=== PATIENT | female | born 1950 | race Caucasian/White ===

== ENCOUNTER → 2017-04-25 | Outpatient (CLI) | payer MEDICARE, BC ==
--- NOTE | 2017-04-28 07:31 | MM ---
Reason for exam: additional evaluation requested from prior study. Last mammogram was performed 2 years and 10 months ago. History: Patient is postmenopausal. Family history of breast cancer in cousin at age 66. Physical Findings: Nurse did not find any significant physical abnormalities on exam. MG 3D Diag Mammo W/Cad MAU Bilateral CC and MLO view(s) were taken. Prior study comparison: June 30, 2014, bilateral MG diagnostic mammo w CAD MAU. September 24, 2012, bilateral digital screening mammo w/CAD. There are scattered fibroglandular densities. Finding: There are typically benign round calcifications in the left breast. There is no discrete abnormality. These results were verbally communicated with the patient and result sheet given to the patient on 04/25/17. ASSESSMENT: Benign, BI-RAD 2 RECOMMENDATION: Routine screening mammogram of both breasts in 1 year. Manage on a clinical basis with regard to bilateral pain.
== END | disposition home or self-care (01) ==
LOC: RADMAMWWP 13:27
PROVIDERS: ATTEND Family Medicine
DX: R92.8 Other abnormal and inconclusive findings on diagnostic imaging of breast (principal)
CPT/HCPCS: G0204; G0279

== ENCOUNTER 2017-07-19 20:49 | Inpatient (IN) | payer MEDICARE, BC ==
[2017-07-19] MEDS ORDERED: NITROGLYCERIN OINT 1 INCH/GM PACKET TOPICAL STA (21:07)
[2017-07-19] MEDS ORDERED: HEPARIN SODIUM,PORCINE 5,000 UNIT/ML 1 ML VIAL IV ONE (21:07)
--- NOTE | 2017-07-19 21:12 | ED ---
General Adult HPI - General Chief complaint: Chest Pain Stated complaint: Chest Pain Time Seen by Provider: 07/19/17 21:00 Source: patient, EMS, RN notes reviewed Mode of arrival: EMS Limitations: no limitations - History of Present Illness Initial comments: This is a 67-year-old female presents emergency Department with a past medical history significant for back surgery and pain management. Patient also states she's had a cardiac history as well. Patient states this morning while getting dressed at 11:00 she started having chest pain is been constant ever since. Patient states his been no relief with nitro or fentanyl. Patient states she went to [facility] they did an initial set of enzymes and a CT to rule out PE and she was transferred our facility. Patient states the chest pain continues and it radiates straight to her back per patient states she is mildly short of breath or chest pain. Patient states when it first came on she was diaphoretic but she is no longer diaphoretic. Patient denies any nausea vomiting per patient denies abdominal pain. Patient denies any palpitations with this pain. Patient denies any lightheadedness dizziness or near syncopal episode. - Related Data Home Medications Medication Instructions Recorded Confirmed ALPRAZolam [Xanax] 1 mg PO BID 05/06/14 05/06/14 Acyclovir 400 mg PO BID 05/06/14 05/06/14 Albuterol Sulfate [Proventil Hfa] 1 - 2 puff INHALATION Q6H PRN 05/06/14 Aspirin 81 mg PO DAILY 05/06/14 05/06/14 Clopidogrel [Plavix] 75 mg PO DAILY 05/06/14 05/06/14 Esomeprazole Magnesium [NexIUM] 40 mg PO DAILY 05/06/14 05/06/14 FLUoxetine HCL [PROzac] 80 mg PO DAILY 05/06/14 05/06/14 Furosemide [Lasix] 40 mg PO DAILY 05/06/14 05/06/14 HYDROcodone/APAP 10-325MG [[place] 1 each PO Q4HR PRN 05/06/14 05/06/14 10] Levothyroxine Sodium [Synthroid] 50 mcg PO DAILY 05/06/14 05/06/14 Lidocaine 5% Patch [Lidoderm 5% 1 patch TOPICAL Q12H 05/06/14 05/06/14 Patch] Lisinopril [Zestril] 10 mg PO DAILY 05/06/14 05/06/14 Methocarbamol [Robaxin] 1,500 mg PO TID 05/06/14 05/06/14 Methylphenidate HCl [Ritalin] 10 mg PO DAILY 05/06/14 05/06/14 Potassium Chloride [Klor-Con 10] 20 meq PO DAILY 05/06/14 05/06/14 Simvastatin [Zocor] 40 mg PO HS 05/06/14 05/06/14 lamoTRIgine [LaMICtal] 50 mg PO BID 05/06/14 05/06/14 traZODone HCL [Desyrel] 50 mg PO HS 05/06/14 05/06/14 Previous Rx's Medication Instructions Recorded Azithromycin [Zithromax Z-pack] 250 mg PO DIRECTED #6 tab 05/06/14 Allergies Allergy/AdvReac Type Severity Reaction Status Date / Time betamethasone Allergy Unknown Verified 05/06/14 01:00 [From Celestone] betamethasone sodium Allergy Unknown Verified 05/06/14 01:00 phosphate [From Celestone] Iodinated Contrast- Oral and Allergy Unknown Verified 05/06/14 01:00 IV Dye [Iodinated Contrast Media - IV Dye] NSAIDS (Non-Steroidal Allergy Unknown Verified 07/19/17 21:00 Anti-Inflamma prednisone Allergy Unknown Verified 05/06/14 01:00 rofecoxib [From Vioxx] Allergy Unknown Verified 05/06/14 01:00 sulfamethoxazole Allergy Unknown Verified 05/06/14 01:00 [From Septra] trimethoprim [From Septra] Allergy Unknown Verified 05/06/14 01:00 Review of Systems ROS Statement: Those systems with pertinent positive or pertinent negative responses have been documented in the HPI. ROS Other: All systems not noted in ROS Statement are negative. Past Medical History Past Medical History: Chest Pain / Angina, Heart Failure, COPD, Deep Vein Thrombosis (DVT), GERD/Reflux, Hyperlipidemia, Hypertension, Myocardial Infarction ([place]) History of Any Multi-Drug Resistant Organisms: None Reported Past Surgical History: Appendectomy, Heart Catheterization With Stent, Hysterectomy, Tonsillectomy Additional Past Surgical History / Comment(s): bilateral ovaries, d&c, right kidney, Past Psychological History: Anxiety, Depression Smoking Status: Current every day smoker Past Alcohol Use History: None Reported Past Drug Use History: None Reported General Exam - General Exam Comments Initial Comments: GENERAL: Patient is well-developed and well-nourished. Patient is nontoxic and well- hydrated and is in mild distress. ENT: Neck is soft and supple. No significant lymphadenopathy is noted. Oropharynx is clear. Moist mucous membranes. Neck has full range of motion without eliciting any pain. EYES: The sclera were anicteric and conjunctiva were pink and moist. Extraocular movements were intact and pupils were equal round and reactive to light. Eyelids were unremarkable. PULMONARY: Unlabored respirations. Good breath sounds bilaterally. No audible rales rhonchi or wheezing was noted. CARDIOVASCULAR: There is a regular rate and rhythm without any murmurs gallops or rubs. ABDOMEN: Soft and nontender with normal bowel sounds. No palpable organomegaly was noted. There is no palpable pulsatile mass. SKIN: Skin is clear with no lesions or rashes and otherwise unremarkable. NEUROLOGIC: Patient is alert and oriented x3. Cranial nerves II through XII are grossly intact. Motor and sensory are also intact. Normal speech, volume and content. Symmetrical smile. MUSCULOSKELETAL: Normal extremities with adequate strength and full range of motion. No lower extremity swelling or edema. No calf tenderness. LYMPHATICS: No significant lymphadenopathy is noted PSYCHIATRIC: Normal psychiatric evaluation. Normal interpersonal interactions appears functionally intact in deals appropriately with others. No signs of depression. No signs of anxiety. Limitations: no limitations Course Vital Signs 07/19/17 07/19/17 07/19/17 21:00 21:41 22:38 Temperature 98.8 F 97.2 F L Pulse Rate 50 L 45 L 47 L Respiratory 16 16 20 Rate Blood Pressure 179/91 170/82 168/82 O2 Sat by Pulse 96 98 95 Oximetry Medical Decision Making - Medical Decision Making EKG shows sinus tachycardia 46 bpm AK interval is 144 QRS is 86 QT interval 550 QTC is 481. Patient's EKG shows no ST segment elevation or depression or T wave normalities are noted. Patient's second enzymes, at [facility] were negative I was Dr. Parmar's nurse practitioner and she agreed to keep the patient admitted the patient I consult cardiology I placed the patient on heparin I repeated enzymes on the floor I continue the heparin and aspirin and Nitropaste upstairs. - Lab Data Result diagrams: 07/19/17 21:06 07/19/17 21:06 Lab Results 07/19/17 07/19/17 07/19/17 Range/Units 21:06 21:06 21:06 WBC 6.2 (3.8-10.6) k/uL RBC 4.04 (3.80-5.40) m/uL Hgb 12.0 (11.4-16.0) gm/dL Hct 37.4 (34.0-46.0) % MCV 92.4 (80.0-100.0) fL MCH 29.6 (25.0-35.0) pg MCHC 32.1 (31.0-37.0) g/dL RDW 12.8 (11.5-15.5) % Plt Count 234 (150-450) k/uL Neutrophils % 86 % Lymphocytes % 11 % Monocytes % 2 % Eosinophils % 0 % Basophils % 1 % Neutrophils # 5.4 (1.3-7.7) k/uL Lymphocytes # 0.7 L (1.0-4.8) k/uL Monocytes # 0.1 (0-1.0) k/uL Eosinophils # 0.0 (0-0.7) k/uL Basophils # 0.0 (0-0.2) k/uL PT (9.0-12.0) sec INR (<1.2) APTT (22.0-30.0) sec Sodium 140 (137-145) mmol/L Potassium 3.8 (3.5-5.1) mmol/L Chloride 108 H (98-107) mmol/L Carbon Dioxide 23 (22-30) mmol/L Anion Gap 9 mmol/L BUN 4 L (7-17) mg/dL Creatinine 0.59 (0.52-1.04) mg/dL Est GFR (MDRD) Af Amer >60 (>60 ml/min/1.73 sqM) Est GFR (MDRD) Non-Af >60 (>60 ml/min/1.73 sqM) Glucose 114 H (74-99) mg/dL Calcium 9.5 (8.4-10.2) mg/dL Magnesium 1.8 (1.6-2.3) mg/dL Total Bilirubin 0.5 (0.2-1.3) mg/dL AST 38 H (14-36) U/L ALT 35 (9-52) U/L Alkaline Phosphatase 65 (38-126) U/L Total Creatine Kinase 80 (30-135) U/L CK-MB (CK-2) 1.0 (0.0-2.4) ng/mL CK-MB (CK-2) Rel Index 1.3 Troponin I <0.012 (0.000-0.034) ng/mL Total Protein 6.8 (6.3-8.2) g/dL Albumin 4.1 (3.5-5.0) g/dL 07/19/17 Range/Units 21:06 WBC (3.8-10.6) k/uL RBC (3.80-5.40) m/uL Hgb (11.4-16.0) gm/dL Hct (34.0-46.0) % MCV (80.0-100.0) fL MCH (25.0-35.0) pg MCHC (31.0-37.0) g/dL RDW (11.5-15.5) % Plt Count (150-450) k/uL Neutrophils % % Lymphocytes % % Monocytes % % Eosinophils % % Basophils % % Neutrophils # (1.3-7.7) k/uL Lymphocytes # (1.0-4.8) k/uL Monocytes # (0-1.0) k/uL Eosinophils # (0-0.7) k/uL Basophils # (0-0.2) k/uL PT 11.3 (9.0-12.0) sec INR 1.1 (<1.2) APTT 26.4 (22.0-30.0) sec Sodium (137-145) mmol/L Potassium (3.5-5.1) mmol/L Chloride (98-107) mmol/L Carbon Dioxide (22-30) mmol/L Anion Gap mmol/L BUN (7-17) mg/dL Creatinine (0.52-1.04) mg/dL Est GFR (MDRD) Af Amer (>60 ml/min/1.73 sqM) Est GFR (MDRD) Non-Af (>60 ml/min/1.73 sqM) Glucose (74-99) mg/dL Calcium (8.4-10.2) mg/dL Magnesium (1.6-2.3) mg/dL Total Bilirubin (0.2-1.3) mg/dL AST (14-36) U/L ALT (9-52) U/L Alkaline Phosphatase (38-126) U/L Total Creatine Kinase (30-135) U/L CK-MB (CK-2) (0.0-2.4) ng/mL CK-MB (CK-2) Rel Index Troponin I (0.000-0.034) ng/mL Total Protein (6.3-8.2) g/dL Albumin (3.5-5.0) g/dL Critical Care Time Critical Care Time: Yes Total Critical Care Time: 35 Disposition Clinical Impression: Unstable angina pectoris Disposition: ADMITTED IP TO THIS [facility] Time of Disposition: 21:55
[2017-07-19 21:19] LABS: Basophils % (A) 1 %; CH 29.8; CHCM 32.5; Eosinophils % (A) 0 %; HCT 37.4 % (34.0-46.0); HDW 2.53; Luc # (Auto) 0.02; Luc % (Auto) 0; Lymphocytes # (A) 0.7 k/uL (1.0-4.8); Lymphocytes % (A) 11 %; MCH 29.6 pg (25.0-35.0); MCHC 32.1 g/dL (31.0-37.0); MCV 92.4 fL (80.0-100.0); Mean Platelet Volume 6.6; Monocytes # (A) 0.1 k/uL (0-1.0); Monocytes % (A) 2 %; Neutrophils # (A) 5.4 k/uL (1.3-7.7); Neutrophils % (A) 86 %; RBC 4.04 m/uL (3.80-5.40); RDW 12.8 % (11.5-15.5); WBC 6.2 k/uL (3.8-10.6); WBC (Perox) 6.05
[2017-07-19 21:31] LABS: INR 1.1 (<1.2); Partial Thromboplastin Time 26.4 sec (22.0-30.0); Prothrombin Time 11.3 sec (9.0-12.0)
[2017-07-19 21:32] LABS: ALT 35 U/L (9-52); AST 38 U/L (14-36); Alkaline Phosphatase 65 U/L (38-126); Anion Gap 9 mmol/L; Blood Urea Nitrogen 4 mg/dL (7-17); Calcium 9.5 mg/dL (8.4-10.2); Carbon Dioxide 23 mmol/L (22-30); Chloride 108 mmol/L (98-107); Creatine Kinase 80 U/L (30-135); Glucose 114 mg/dL (74-99); Magnesium 1.8 mg/dL (1.6-2.3); Non-African American GFR(MDRD) >60 (>60 ml/min/1.73 sqM); Potassium 3.8 mmol/L (3.5-5.1); Sodium 140 mmol/L (137-145); Total Bilirubin 0.5 mg/dL (0.2-1.3); Total Protein 6.8 g/dL (6.3-8.2)
[2017-07-19] MEDS: HEPARIN SODIUM,PORCINE/D5W PMX 25,000 UNIT in DEXTROSE/WATER 1 500ML.BAG IV SCH (21:37)
[2017-07-19 21:43] LABS: Troponin I <0.012 ng/mL (0.000-0.034)
[2017-07-19] MEDS ORDERED: NITROGLYCERIN SL TABS 0.4 MG TAB SUBLINGUAL PRN (21:55)
[2017-07-19] MEDS ORDERED: LEVOFLOXACIN 750MG-D5W PMX 750 MG in DEXTROSE/WATER 1 150ML.BAG IVPB STA (22:31)
[2017-07-19] MEDS ORDERED: MORPHINE SULFATE 10 MG/ML SYRINGE IVP STA (22:33)
[2017-07-19] MEDS ORDERED: LEVOFLOXACIN 750MG-D5W PMX 750 MG in DEXTROSE/WATER 1 150ML.BAG IVPB SCH (22:45)
[2017-07-19] MEDS ORDERED: ALPRAZolam 0.5 MG TAB PO PRN (23:59)
[2017-07-20] MEDS: NITROGLYCERIN OINT 1 INCH/GM PACKET TOPICAL SCH ×5 (00:15→23:02)
[2017-07-20] MEDS: MAG HYDROX/AL HYDROX/SIMETH 30 ML CUP PO SCH ×5 (00:15→20:54)
[2017-07-20] MEDS: MORPHINE SULFATE 10 MG/ML SYRINGE IVP PRN ×3 (01:24→09:08)
[2017-07-20 05:03] LABS: Cholesterol 221 mg/dL (<200); HDL Cholesterol 94 mg/dL (40-60)
[2017-07-20 05:20] LABS: Creatine Kinase 83 U/L (30-135)
[2017-07-20 05:32] LABS: Creatine Kinase MB 1.2 ng/mL (0.0-2.4); Troponin I <0.012 ng/mL (0.000-0.034)
[2017-07-20] MEDS ORDERED: ONDANSETRON 4 MG/2 ML VIAL IVP PRN (08:29)
--- NOTE | 2017-07-20 08:34 | P.CRDCN ---
History of Present Illness Consult date: 07/20/17 Chief complaint: Chest pain History of present illness: This is a pleasant 67-year-old female patient with a past medical history significant for coronary artery disease with prior stenting was performed about 2 years ago with unknown details the patient does see a life skills worker at [facility] and the stenting was performed at [facility] in the setting of acute myocardial infarction preceded by syncopal episode. Beside that the patient does have hypertension, dyslipidemia, and she is a smoker. She was in her usual state of health yesterday when she was dressing and she started experiencing chest discomfort, she points toward the epigastric area as well as toward the left and right upper quadrant of the abdomen. She stated that the discomfort is radiating to her mid chest. Beside that she was experiencing intermittent episodes of sweating associated with nausea. On physical examination she does have extreme abdominal tenderness even when I touched the abdomen. She stated that she has a hernia. The tenderness on examination is quite intense. Beside that she is bradycardic with heart rate in the 40s and 50s. The cardiac enzymes were checked and came in to be unremarkable. The EKG showed sinus bradycardia with nonspecific changes. I am concerned about intra-abdominal process at this point in view of the epigastric discomfort. I will obtain an ultrasound of the abdomen at this point. If a GI etiology for the epigastric discomfort ruled out I will rule out severe underlying coronary artery disease after that. Meanwhile I will obtain an echocardiogram was Doppler. Also I will obtain a TSH. Past Medical History Past Medical History: Chest Pain / Angina, Heart Failure, COPD, Deep Vein Thrombosis (DVT), GERD/Reflux, Hyperlipidemia, Hypertension, Myocardial Infarction ([place]) Additional Past Medical History / Comment(s): "kidney stones and hydronephrosis , UTI's (see's specialist)" Last Myocardial Infarction Date:: 2004 History of Any Multi-Drug Resistant Organisms: None Reported Past Surgical History: Appendectomy, Heart Catheterization With Stent, Hysterectomy, Tonsillectomy Additional Past Surgical History / Comment(s): bilateral ovaries, d&c, right kidney, Past Anesthesia/Blood Transfusion Reactions: No Reported Reaction Date of Last Stent Placement:: 2005 Past Psychological History: Anxiety, Depression Smoking Status: Current every day smoker Past Alcohol Use History: None Reported Past Drug Use History: None Reported - Past Family History Mother Family Medical History: Congestive Heart Failure (CHF), CVA/TIA Father Family Medical History: Cancer Additional Family Medical History / Comment(s): " of lung cancer" Medications and Allergies Home Medications Medication Instructions Recorded Confirmed Type ALPRAZolam [Xanax] 1 mg PO BID 05/06/14 07/20/17 History Acyclovir 400 mg PO BID 05/06/14 07/20/17 History Albuterol Sulfate [Proventil Hfa] 1 - 2 puff INHALATION Q6H PRN 05/06/14 History Esomeprazole Magnesium [NexIUM] 40 mg PO DAILY 05/06/14 07/20/17 History FLUoxetine HCL [PROzac] 80 mg PO DAILY 05/06/14 07/20/17 History Furosemide [Lasix] 40 mg PO DAILY 05/06/14 07/20/17 History Levothyroxine Sodium [Synthroid] 50 mcg PO DAILY 05/06/14 07/20/17 History Lisinopril [Zestril] 10 mg PO DAILY 05/06/14 07/20/17 History Potassium Chloride [Klor-Con 10] 20 meq PO DAILY 05/06/14 07/20/17 History Simvastatin [Zocor] 40 mg PO HS 05/06/14 07/20/17 History lamoTRIgine [LaMICtal] 50 mg PO BID 05/06/14 07/20/17 History traZODone HCL [Desyrel] 50 mg PO HS 05/06/14 07/20/17 History fentaNYL 75MCG/HR PATCH [Duragesic 75 mcg TOPICAL 07/20/17 History 75MCG/HR] oxyCODONE-APAP 10-325MG [Percocet 1 tab PO Q6HR PRN 07/20/17 07/20/17 History 10-325 mg] Allergies Allergy/AdvReac Type Severity Reaction Status Date / Time betamethasone Allergy Unknown Verified 05/06/14 01:00 [From Celestone] betamethasone sodium Allergy Unknown Verified 05/06/14 01:00 phosphate [From Celestone] Iodinated Contrast- Oral and Allergy Unknown Verified 05/06/14 01:00 IV Dye [Iodinated Contrast Media - IV Dye] NSAIDS (Non-Steroidal Allergy Unknown Verified 07/19/17 21:00 Anti-Inflamma prednisone Allergy Unknown Verified 05/06/14 01:00 rofecoxib [From Vioxx] Allergy Unknown Verified 05/06/14 01:00 sulfamethoxazole Allergy Unknown Verified 05/06/14 01:00 [From Septra] trimethoprim [From Septra] Allergy Unknown Verified 05/06/14 01:00 Physical Exam Vitals: Vital Signs Temp Pulse Pulse Resp BP BP Pulse Ox 07/20/17 04:00 98.0 F 57 L 16 178/81 98 07/20/17 00:00 98.2 F 48 L 16 143/64 96 07/19/17 22:38 97.2 F L 47 L 20 168/82 95 07/19/17 22:21 43 L 18 174/83 99 07/19/17 21:55 99 07/19/17 21:41 45 L 16 170/82 98 07/19/17 21:00 98.8 F 50 L 16 179/91 96 Intake and Output 07/19/17 07/20/17 07/20/17 23:59 06:59 14:59 Intake Total 0 Balance 0 Intake: Intake, IV Titration Amount Heparin Sodium,Porcine/ D5w Pmx 25,000 unit In Dextrose/Water 1 500ml. bag @ 12 UNITS/KG/HR 11. 97 mls/hr IV .Q24H SUSAN Rx #:[id number] Oral 0 Other: # Voids Weight - Constitutional General appearance: no acute distress - Respiratory Respiratory: bilateral: CTA - Cardiovascular Rhythm: regular Heart sounds: normal: S1, S2 Results 07/19/17 21:06 07/19/17 21:06 Cardiac Enzymes 07/19/17 07/19/17 07/20/17 Range/Units 21:06 21:06 03:55 AST 38 H (14-36) U/L CK-MB (CK-2) 1.0 1.2 (0.0-2.4) ng/mL Troponin I <0.012 <0.012 (0.000-0.034) ng/mL Coagulation 07/19/17 07/20/17 Range/Units 21:06 03:55 PT 11.3 (9.0-12.0) sec APTT 26.4 36.4 H (22.0-30.0) sec Lipids 07/20/17 Range/Units 03:55 Triglycerides 90 (<150) mg/dL Cholesterol 221 H (<200) mg/dL HDL Cholesterol 94 H (40-60) mg/dL CBC 07/19/17 Range/Units 21:06 WBC 6.2 (3.8-10.6) k/uL RBC 4.04 (3.80-5.40) m/uL Hgb 12.0 (11.4-16.0) gm/dL Hct 37.4 (34.0-46.0) % Plt Count 234 (150-450) k/uL Comprehensive Metabolic Panel 07/19/17 Range/Units 21:06 Sodium 140 (137-145) mmol/L Potassium 3.8 (3.5-5.1) mmol/L Chloride 108 H (98-107) mmol/L Carbon Dioxide 23 (22-30) mmol/L BUN 4 L (7-17) mg/dL Creatinine 0.59 (0.52-1.04) mg/dL Glucose 114 H (74-99) mg/dL Calcium 9.5 (8.4-10.2) mg/dL AST 38 H (14-36) U/L ALT 35 (9-52) U/L Alkaline Phosphatase 65 (38-126) U/L Total Protein 6.8 (6.3-8.2) g/dL Albumin 4.1 (3.5-5.0) g/dL Current Medications Generic Name Dose Route Start Last Admin Trade Name Freq PRN Reason Stop Dose Admin Al Hydroxide/Mg Hydroxide 30 ml 07/19/17 23:45 07/20/17 00:15 Maalox PO 30 ml QID SUSAN Administration Alprazolam 1 mg 07/19/17 23:59 07/20/17 00:15 Xanax PO 1 mg BID PRN Administration Anxiety Aspirin 325 mg 07/20/17 09:00 Aspirin PO DAILY [facility] Heparin Sodium/Dextrose 25,000 500 mls @ 11.97 mls/hr 07/19/17 21:15 04:54 unit/ IV Solution IV 15 units/kg/hr .Q24H SUSAN 14.96 mls/hr Protocol Titration 12 UNITS/KG/HR Morphine Sulfate 2 mg 07/19/17 23:59 07/20/17 04:57 Morphine Sulfate (Inj) IVP 2 mg Q3H PRN Administration Pain Nitroglycerin 1 inch 07/20/17 00:00 07/20/17 06:30 Nitro-Bid Oint TOPICAL Not Given Q6HR [facility] Nitroglycerin 0.4 mg 07/19/17 21:55 Nitrostat SUBLINGUAL Q5M PRN Chest Pain Intake and Output 07/19/17 07/20/17 07/20/17 23:59 06:59 14:59 Intake Total 0 Balance 0 Intake: Intake, IV Titration Amount Heparin Sodium,Porcine/ D5w Pmx 25,000 unit In Dextrose/Water 1 500ml. bag @ 12 UNITS/KG/HR 11. 97 mls/hr IV .Q24H SUSAN Rx #:[id number] Oral 0 Other: # Voids Weight 07/19/17 21:06 07/19/17 21:06 Assessment and Plan Assessment: This is a pleasant 67-year-old female patient with a known CAD and prior stenting with unknown details at this point, hypertension, dyslipidemia, and significant history of smoking, presented to the hospital was epigastric discomfort. On physical examination she has epigastric tenderness. I am concerned about intra-abdominal process at this point in view of the epigastric discomfort. I will obtain an ultrasound of the abdomen at this point. If a GI etiology for the epigastric discomfort ruled out I will rule out severe underlying coronary artery disease after that. Meanwhile I will obtain an echocardiogram was Doppler. Also I will obtain a TSH.
[2017-07-20] MEDS: ASPIRIN 325 MG TAB PO SCH (08:51)
--- NOTE | 2017-07-20 10:11 | US ---
EXAMINATION TYPE: US abdomen complete DATE OF EXAM: 07/20/2017 COMPARISON: CLINICAL HISTORY: Pain. Midline/left side pain, NPO EXAM MEASUREMENTS: Liver Length: 15.5 cm Gallbladder Wall: 0.2 cm CBD: 0.9 cm CHD: 0.5 Spleen: 9.9 cm Right Kidney: 10.6 x 4.4 x 3.9 cm Left Kidney: 10.7 x 4.6 x 3.7 cm Pancreas: wnl Liver: wnl Gallbladder: small amount of free fluid seen adjacent to GB, only seen supine Evidence for sonographic Menezes's sign: neg CBD: Dilated CHD: wnl Spleen: wnl Right Kidney: wnl Left Kidney: wnl Upper IVC: wnl Abd Aorta: No AAA identified Limited views of the pancreas are unremarkable. The liver is normal in size without biliary dilatation. I do not see evidence of gallstones. Gallbladder wall measures 1.6 mm. There is a tiny amount of sowmya cholecystic fluid. The distal common hepatic duct measures 5 mm. The spleen is normal in size. Both kidneys are unremarkable. There is atheromatous irregularity of the aorta but there is no aneurysmal dilatation. IMPRESSION: SMALL AMOUNT OF PERICHOLECYSTIC FLUID MAY REPRESENT SIMPLE ASCITES. PLEASE CORRELATE TO EXCLUDE ACALC ULOUS CHOLECYSTITIS.
[2017-07-20 11:01] LABS: Creatine Kinase 79 U/L (30-135)
[2017-07-20 11:13] LABS: Creatine Kinase MB 1.5 ng/mL (0.0-2.4); Troponin I <0.012 ng/mL (0.000-0.034)
[2017-07-20] MEDS ORDERED: valACYclovir HCL 1,000 MG TABLET PO PRN (12:08)
[2017-07-20] MEDS ORDERED: ALBUTEROL NEBULIZED 2.5 MG/3 ML INHALATION PRN (12:08)
[2017-07-20] MEDS ORDERED: NITROGLYCERIN SL TABS 0.4 MG TAB SUBLINGUAL PRN (12:08)
[2017-07-20] MEDS ORDERED: SUMAtriptan SUCCINATE 50 MG TAB PO STA (12:17)
--- NOTE | 2017-07-20 14:17 | P.HPIM ---
History of Present Illness 5-year-old female with known history of cannot disease with previous stenting in [facility] came came in with complaints of chest pain was started yesterday lasted for 45 minutes , nonexertional not relieved by nitroglycerin, no associated diaphoresis, but had nausea nausea will persisted vomiting not related to food nonpleuritic in nature. Patientis already on proton will return at home which is being continued patient is admitted for cardiology evaluation patient chest pain radiated to the left arm about 6 x 10 in severity. Patient in the past had a cardiac ablation stenting. EKG showed some sinus bradycardia troponin is negative TSH is being obtained.is also comparing of headache, she believes it's from her migraine. Patient is on multiple narcotic medications because of her chronic pain syndrome fibromyalgia chronic low back pain, patient is being resumed on all those medications, my suspicion is low that this is cardiac pain because of which patient will be started on Imitrex as she requested Review of Systems REVIEW OF SYSTEMS: CONSTITUTIONAL: No fever, no malaise, no fatigue. HEENT: No recent visual problems or hearing problems. Denied any sore throat. CARDIOVASCULAR: No orthopnea, PND, no palpitations, no syncope. PULMONARY: No shortness of breath, no cough, no hemoptysis. GASTROINTESTINAL: No diarrhea, no nausea, no vomiting, Normoactive bowel sounds. NEUROLOGICAL: No headaches, no weakness, no numbness. HEMATOLOGICAL: Denies any bleeding or petechiae. GENITOURINARY: Denies any burning micturition, frequency, or urgency. MUSCULOSKELETAL/RHEUMATOLOGICAL: Denies any joint pain, swelling, or any muscle pain. ENDOCRINE: Denies any polyuria or polydipsia. The rest of the 14-point review of systems is negative. Past Medical History Past Medical History: Chest Pain / Angina, Heart Failure, COPD, Deep Vein Thrombosis (DVT), GERD/Reflux, Hyperlipidemia, Hypertension, Myocardial Infarction (MS) Additional Past Medical History / Comment(s): "kidney stones and hydronephrosis , UTI's (see's specialist)" Last Myocardial Infarction Date:: 2004 History of Any Multi-Drug Resistant Organisms: None Reported Past Surgical History: Appendectomy, Heart Catheterization With Stent, Hysterectomy, Tonsillectomy Additional Past Surgical History / Comment(s): bilateral ovaries, d&c, right kidney, Past Anesthesia/Blood Transfusion Reactions: No Reported Reaction Date of Last Stent Placement:: 2005 Past Psychological History: Anxiety, Depression Smoking Status: Current every day smoker Past Alcohol Use History: None Reported Past Drug Use History: None Reported - Past Family History Mother Family Medical History: Congestive Heart Failure (CHF), CVA/TIA Father Family Medical History: Cancer Additional Family Medical History / Comment(s): " of lung cancer" Medications and Allergies Home Medications Medication Instructions Recorded Confirmed Type ALPRAZolam [Xanax] 1 mg PO BID 05/06/14 07/20/17 History Acyclovir 400 mg PO BID 05/06/14 07/20/17 History Esomeprazole Magnesium [NexIUM] 40 mg PO DAILY 05/06/14 07/20/17 History FLUoxetine HCL [PROzac] 80 mg PO DAILY 05/06/14 07/20/17 History Furosemide [Lasix] 40 mg PO DAILY 05/06/14 07/20/17 History Levothyroxine Sodium [Synthroid] 50 mcg PO DAILY 05/06/14 07/20/17 History Potassium Chloride [Klor-Con 10] 10 meq PO BID 05/06/14 07/20/17 History Simvastatin [Zocor] 40 mg PO HS 05/06/14 07/20/17 History Acyclovir 5% Oint [Zovirax Oint] 1 applic TOPICAL 5XD PRN 07/20/17 07/20/17 History Albuterol Inhaler [Ventolin Hfa 2 puff INHALATION RT-QID PRN 07/20/17 07/20/17 History Inhaler] Lisinopril [Zestril] 20 mg PO DAILY 07/20/17 07/20/17 History Nitroglycerin Sl Tabs [Nitrostat] 0.4 mg SUBLINGUAL Q5M PRN 07/20/17 07/20/17 History fentaNYL 75MCG/HR PATCH [Duragesic 75 mcg TOPICAL Q72H 07/20/17 07/20/17 History 75MCG/HR] lamoTRIgine [LaMICtal] 100 mg PO BID 07/20/17 07/20/17 History oxyCODONE-APAP 10-325MG [Percocet 1 tab PO Q6HR PRN 07/20/17 07/20/17 History 10-325 mg] traZODone HCL 75 mg PO HS 07/20/17 07/20/17 History Allergies Allergy/AdvReac Type Severity Reaction Status Date / Time betamethasone Allergy Unknown Verified 07/20/17 08:34 [From Celestone] betamethasone sodium Allergy Unknown Verified 07/20/17 08:34 phosphate [From Celestone] Iodinated Contrast- Oral and Allergy Unknown Verified 07/20/17 08:34 IV Dye [Iodinated Contrast Media - IV Dye] NSAIDS (Non-Steroidal Allergy Unknown Verified 07/20/17 08:34 Anti-Inflamma prednisone Allergy Unknown Verified 07/20/17 08:34 rofecoxib [From Vioxx] Allergy Unknown Verified 07/20/17 08:34 sulfamethoxazole Allergy Unknown Verified 07/20/17 08:34 [From Septra] trimethoprim [From Septra] Allergy Unknown Verified 07/20/17 08:34 Physical Exam Vitals: Vital Signs Temp Pulse Pulse Resp BP BP Pulse Ox 07/20/17 12:00 60 18 07/20/17 11:05 98.0 F 60 18 168/77 98 07/20/17 08:00 98.5 F 58 L 20 164/78 96 07/20/17 04:00 98.0 F 57 L 16 178/81 98 07/20/17 00:00 98.2 F 48 L 16 143/64 96 07/19/17 22:38 97.2 F L 47 L 20 168/82 95 07/19/17 22:21 43 L 18 174/83 99 07/19/17 21:55 99 07/19/17 21:41 45 L 16 170/82 98 07/19/17 21:00 98.8 F 50 L 16 179/91 96 Intake and Output 07/19/17 07/20/17 07/20/17 23:59 06:59 14:59 Intake Total 409.007 Balance 409.007 Intake: Intake, IV Titration 91.007 Amount Heparin Sodium,Porcine/ 91.007 D5w Pmx 25,000 unit In Dextrose/Water 1 500ml. bag @ 12 UNITS/KG/HR 11. 97 mls/hr IV .Q24H [facility] Rx #:[id number] Oral 318 Other: # Voids 1 Weight PHYSICAL EXAMINATION: GENERAL: The patient is alert and oriented x3, not in any acute distress. Well developed, well nourished. HEENT: Pupils are round and equally reacting to light. EOMI. No scleral icterus. No conjunctival pallor. Normocephalic, atraumatic. No pharyngeal erythema. No thyromegaly. CARDIOVASCULAR: S1 and S2 present. No murmurs, rubs, or gallops. PULMONARY: Chest is clear to auscultation, no wheezing or crackles. reprodusable chest pain ABDOMEN: Soft, nontender, nondistended, normoactive bowel sounds. No palpable organomegaly. MUSCULOSKELETAL: No joint swelling or deformity. EXTREMITIES: No cyanosis, clubbing, or pedal edema. NEUROLOGICAL: Gross neurological examination did not reveal any focal deficits. SKIN: No rashes. Results CBC & Chem 7: 07/19/17 21:06 07/19/17 21:06 Labs: Abnormal Lab Results - Last 24 Hours (Table) 07/19/17 07/19/17 07/20/17 Range/Units 21:06 21:06 03:55 Lymphocytes # 0.7 L (1.0-4.8) k/uL APTT (22.0-30.0) sec Chloride 108 H (98-107) mmol/L BUN 4 L (7-17) mg/dL Glucose 114 H (74-99) mg/dL AST 38 H (14-36) U/L Cholesterol 221 H (<200) mg/dL LDL Cholesterol, Calc 109 H (0-99) mg/dL HDL Cholesterol 94 H (40-60) mg/dL 07/20/17 07/20/17 Range/Units 03:55 10:24 Lymphocytes # (1.0-4.8) k/uL APTT 36.4 H 34.5 H (22.0-30.0) sec Chloride (98-107) mmol/L BUN (7-17) mg/dL Glucose (74-99) mg/dL AST (14-36) U/L Cholesterol (<200) mg/dL LDL Cholesterol, Calc (0-99) mg/dL HDL Cholesterol (40-60) mg/dL Thrombosis Risk Factor Assmnt - Choose All That Apply Any of the Below Risk Factors Present?: No Each Risk Factor Represents 2 Points: Age 61-74 years, Patient confined to bed Each Risk Factor Represents 3 Points: History of DVT/PE Other congenital or acquired thrombophilia - If yes, enter type in comment: No Thrombosis Risk Factor Assessment Total Risk Factor Score: 7 Thrombosis Risk Factor Assessment Level: High Risk Assessment and Plan Plan: #1 chest pain: Rule out acute coronary syndromes patient mostly has [place] skeletal chest pain R gastric esophageal reflux disease patient is already on proton per millimeter which will be continued. Further management of cardiac chest pain as per cardiology. #2COPD without any acuteexacerbationdoesn't do not in acute exacerbation #3 DVT history #4 gases patient reflux disease #5 hyperlipidemia #6 hypertension #7 coronary artery disease in the past #9for myalgia
[2017-07-20] MEDS: ACYCLOVIR 200 MG CAP PO SCH (20:46)
[2017-07-20] MEDS: lamoTRIgine 100 MG TAB PO SCH (20:46)
[2017-07-20] MEDS: ATORVASTATIN 20 MG TAB PO SCH (20:46)
[2017-07-20] MEDS: traZODone HCL 50 MG TAB PO SCH (20:46)
[2017-07-20] MEDS: HEPARIN SODIUM,PORCINE/D5W PMX 25,000 UNIT in DEXTROSE/WATER 1 500ML.BAG IV SCH (20:47)
[2017-07-20] MEDS: ALPRAZolam 0.5 MG TAB PO PRN (20:54)
[2017-07-21] MEDS: NITROGLYCERIN OINT 1 INCH/GM PACKET TOPICAL SCH ×4 (05:00→23:48)
[2017-07-21 06:12] LABS: CH 29.4; CHCM 31.1; HCT 39.7 % (34.0-46.0); HDW 2.43; HGB 12.2 gm/dL (11.4-16.0); Hypochromasia Slight; MCH 29.1 pg (25.0-35.0); MCHC 30.6 g/dL (31.0-37.0); MCV 94.9 fL (80.0-100.0); Mean Platelet Volume 6.3; RBC 4.19 m/uL (3.80-5.40); RDW 12.6 % (11.5-15.5); WBC 8.6 k/uL (3.8-10.6)
[2017-07-21] MEDS ORDERED: LEVOTHYROXINE 50 MCG TAB PO SCH (06:30)
[2017-07-21 06:34] LABS: Anion Gap 7 mmol/L; Blood Urea Nitrogen 13 mg/dL (7-17); Calcium 9.1 mg/dL (8.4-10.2); Carbon Dioxide 28 mmol/L (22-30); Chloride 105 mmol/L (98-107); Glucose 92 mg/dL (74-99); Non-African American GFR(MDRD) >60 (>60 ml/min/1.73 sqM); Potassium 3.8 mmol/L (3.5-5.1); Sodium 140 mmol/L (137-145)
--- NOTE | 2017-07-21 10:07 | ECHOF ---
Referral Reason:CAD/Bradycardia MEASUREMENTS -------- HEIGHT: 157.5 cm WEIGHT: 50.8 kg BP: 132/60 RVIDd: 3.1 cm (< 3.3) IVSd: 1.0 cm (0.6 - 1.1) LVIDd: 3.9 cm (3.9 - 5.3) LVPWd: 0.9 cm (0.6 - 1.1) IVSs: 1.0 cm LVIDs: 2.9 cm LVPWs: 1.4 cm LA Diam: 3.6 cm (2.7 - 3.8) LAESV Index (A-L): 41.77 ml/m Ao Diam: 2.6 cm (2.0 - 3.7) AV Cusp: 2.1 cm (1.5 - 2.6) LA Diam: 2.9 cm (2.7 - 3.8) MV EXCURSION: 15.618 mm (> 18.000) MV EF SLOPE: 99 mm/s (70 - 150) EPSS: 0.3 cm MV E Davonte: 0.86 m/s MV DecT: 256 ms MV A Davonte: 0.77 m/s MV E/A Ratio: 1.11 RAP: 5.00 mmHg RVSP: 36.41 mmHg FINDINGS -------- Sinus rhythm. This was a technically adequate study. The left ventricular size is normal. There is mild concentric left ventricular hypertrophy. Overa ll left ventricular systolic function is normal with, an EF between 55 - 60 %. The right ventricle is normal in size. LA is severely dilated >40 ml/m2 The right atrial size is normal. The aortic valve is trileaflet, and appears structurally normal. No aortic stenosis or regurgitation. The mitral valve is normal. Mild mitral regurgitation is present. Mild tricuspid regurgitation present. There is mild pulmonary hypertension. The right ventricular systolic pressure, as measured by Doppler, is 36.41mmHg. There is no pulmonic regurgitation present. The aortic root size is normal. There is no pericardial effusion. CONCLUSIONS -------- 1. Sinus rhythm. 2. There is mild concentric left ventricular hypertrophy. 3. Overall left ventricular systolic function is normal with, an EF between 55 - 60 %. 4. LA is severely dilated >40 ml/m2 5. The aortic valve is trileaflet, and appears structurally normal. No aortic stenosis or regurgitati on. 6. Mild mitral regurgitation is present. 7. Mild tricuspid regurgitation present. 8. There is mild pulmonary hypertension. 9. There is no pulmonic regurgitation present. 10. The aortic root size is normal. 11. There is no pericardial effusion. GEOPHYSICS PROFESSOR: Cara Bassett RDCS
[2017-07-21] MEDS: MAG HYDROX/AL HYDROX/SIMETH 30 ML CUP PO SCH ×4 (11:42→20:49)
[2017-07-21] MEDS: ASPIRIN 325 MG TAB PO SCH (11:43)
[2017-07-21] MEDS: LISINOPRIL 20 MG TAB PO SCH (11:43)
[2017-07-21] MEDS: FLUoxetine HCL 20 MG CAP PO SCH (11:43)
[2017-07-21] MEDS: lamoTRIgine 100 MG TAB PO SCH ×2 (11:43→20:48)
[2017-07-21] MEDS: ACYCLOVIR 200 MG CAP PO SCH ×2 (11:43→20:48)
[2017-07-21] MEDS: PANTOPRAZOLE 40 MG TABLET PO SCH (11:43)
[2017-07-21] MEDS: FUROSEMIDE 40 MG TAB PO SCH (11:43)
[2017-07-21] MEDS: ALPRAZolam 0.5 MG TAB PO PRN ×2 (11:59→21:35)
--- NOTE | 2017-07-21 14:13 | P.PN ---
Subjective Progress Note Date: 07/21/17 Principal diagnosis: Abdominal pain This is a 67-year-old female with history of coronary artery disease and prior stent placement, prior DVT, hypertension, hyperlipidemia, GERD, she presented to the hospital with symptoms of epigastric and abdominal discomfort. She was seen in consultation yesterday by Dr. Pike, patient had significant tenderness in the abdomen yesterday, she is noted to have a hernia. Cardiac enzymes were checked and came to be unremarkable and EKG was normal sinus rhythm with no acute changes. An ultrasound of the abdomen was performed which revealed a small amount of. Cholecystic fluid which may represent simple ascites, please correlate to exclude acalculous cholecystitis. Recommendation is that a surgical evaluation be obtained. Echocardiogram with Doppler study was performed which revealed an ejection fraction of 55-60%. LA is severely dilated. Blood pressure 128/60 with a heart rate in the 60s. hemoglobin 11.2, potassium 3.8, BUN 13, creatinine 0.6. Objective - Vital Signs Vital signs: Vital Signs Temp 97 F L 07/21/17 12:00 Pulse 57 L 07/21/17 12:00 Resp 20 07/21/17 12:00 BP 128/66 07/21/17 12:00 Pulse Ox 98 07/21/17 12:00 Intake & Output 07/20/17 07/21/17 07/21/17 18:59 06:59 18:59 Intake Total 767.823 434.023 Balance 767.823 434.023 Weight 50.6 kg Intake: Intake, IV Titration 209.823 74.023 Amount Heparin Sodium,Porcine/ 209.823 74.023 D5w Pmx 25,000 unit In Dextrose/Water 1 500ml. bag @ 12 UNITS/KG/HR 11. 97 mls/hr IV .Q24H [facility] Rx #:[id number] Oral 558 360 Other: Voiding Method Toilet Diaper # Voids 1 2 # Bowel Movements 2 - Exam PHYSICAL EXAMINATION: HEENT: Head is atraumatic, normocephalic. Pupils equal, round. Neck is supple. There is no elevated jugular venous pressure. HEART EXAMINATION: Heart S1, S2 normal. No murmur or gallop heard. CHEST EXAMINATION: Lungs are clear to auscultation and precussion. No chest wall tenderness is noted on palpation or with deep breathing. ABDOMEN: Soft, significant tenderness in the mid left and right upper abdomen. Bowel sounds are heard. No organomegaly noted. EXTREMITIES: 2+ peripheral pulses with no evidence of peripheral edema and no calf tenderness noted. NEUROLOGIC patient is awake, alert and oriented -3. . - Labs CBC & Chem 7: 07/21/17 05:36 07/21/17 05:36 Labs: Abnormal Lab Results - Last 24 Hours (Table) 07/20/17 07/20/17 07/21/17 Range/Units 16:33 23:40 05:36 MCHC (31.0-37.0) g/dL APTT 43.0 H 56.5 H (22.0-30.0) sec TSH 0.400 L (0.465-4.680) mIU/L 07/21/17 07/21/17 Range/Units 05:36 05:36 MCHC 30.6 L (31.0-37.0) g/dL APTT 63.7 H (22.0-30.0) sec TSH (0.465-4.680) mIU/L Assessment and Plan Plan: Assessment and plan #1 abdominal pain, ultrasound of the abdomen suggests possible cholecystitis, recommend surgical consultation #2 history of DVT #3 hypertension #4 hyperlipidemia #5 epigastric discomfort, atypical chest pain, troponins negative. EKG shows a sinus bradycardia with no acute changes. Echocardiogram with Doppler study reveals an ejection fraction of 55-60%. #6 CAD with prior stent placement Plan Recommend a surgical consultation. Once the patient is stable from a surgical perspective and her abdominal pain has resolved, recommend proceeding with stress testing. Perhaps this may be done as an outpatient. DNP note has been reviewed, I agree with a documented findings and plan of care. Patient was seen and examined.
--- NOTE | 2017-07-21 14:35 | P.PN ---
Subjective Patient is admitted for epigastric abdominal pain and chest pain cardiac evaluated the patient. Patient appears to have noncardiac chest pain patient pain although improved patient does have right upper quadrant tenderness OF THE ABDOMEN DID SHOW THICKENING OF GALLBLADDER BECAUSE OF WHICH I'LL START HER ON UNASYN AND WILL CONSULT SURGERY. SHE DOESN'T HAVE ANY LEUKOCYTOSIS OR FEVER Constitutional: Denied any fatigue denied any fever. Cardio vascular: denied any chest pain, palpitations Gastrointestinal denied any nausea vomiting Pulmonary: Denied any shortness of breath cough Neurologic denied any new focal deficits Objective - Vital Signs Vital signs: Vital Signs Temp 97 F L 07/21/17 12:00 Pulse 57 L 07/21/17 12:00 Resp 20 07/21/17 12:00 BP 128/66 07/21/17 12:00 Pulse Ox 98 07/21/17 12:00 Intake & Output 07/20/17 07/21/17 07/21/17 18:59 06:59 18:59 Intake Total 767.823 434.023 408 Balance 767.823 434.023 408 Weight 50.6 kg Intake: IV 168 Heparin Sodium,Porcine/ 168 D5w Pmx 25,000 unit In Dextrose/Water 1 500ml. bag @ 12 UNITS/KG/HR 11. 97 mls/hr IV .Q24H [facility] Rx #:[id number] Intake, IV Titration 209.823 74.023 Amount Heparin Sodium,Porcine/ 209.823 74.023 D5w Pmx 25,000 unit In Dextrose/Water 1 500ml. bag @ 12 UNITS/KG/HR 11. 97 mls/hr IV .Q24H [facility] Rx #:[id number] Oral 558 360 240 Other: Voiding Method Toilet Diaper # Voids 1 2 # Bowel Movements 2 - Exam PHYSICAL EXAMINATION: GENERAL: The patient is alert and oriented x3, not in any acute distress. Well developed, well nourished. HEENT: Pupils are round and equally reacting to light. EOMI. No scleral icterus. No conjunctival pallor. Normocephalic, atraumatic. No pharyngeal erythema. No thyromegaly. CARDIOVASCULAR: S1 and S2 present. No murmurs, rubs, or gallops. PULMONARY: Chest is clear to auscultation, no wheezing or crackles. ABDOMEN: Soft, mild that right upper quadrant and epigastric tenderness, nondistended, normoactive bowel sounds. No palpable organomegaly. MUSCULOSKELETAL: No joint swelling or deformity. EXTREMITIES: No cyanosis, clubbing, or pedal edema. NEUROLOGICAL: Gross neurological examination did not reveal any focal deficits. SKIN: No rashes. - Labs CBC & Chem 7: 07/21/17 05:36 07/21/17 05:36 Labs: Abnormal Lab Results - Last 24 Hours (Table) 07/20/17 07/20/17 07/21/17 Range/Units 16:33 23:40 05:36 MCHC (31.0-37.0) g/dL APTT 43.0 H 56.5 H (22.0-30.0) sec TSH 0.400 L (0.465-4.680) mIU/L 07/21/17 07/21/17 Range/Units 05:36 05:36 MCHC 30.6 L (31.0-37.0) g/dL APTT 63.7 H (22.0-30.0) sec TSH (0.465-4.680) mIU/L Assessment and Plan Plan: #1 chest pain: Rule out acute coronary syndromes patient mostly has pain related to gallbladder or cholecystitis surgery will be consulted appears to be have noncardiac chest pain patient will be transferred out of [facility] patient will be started on Unasyn #2COPD without any acute exacerbation, doesn't do not in acute exacerbation #3 DVT history #4 gases patient reflux disease #5 hyperlipidemia #6 hypertension #7 coronary artery disease in the past #9 fibromyalgia 10 sick euthyroid syndrome TSH need to be repeated again. #11 Migraine improved symptoms with Imitrex
[2017-07-21] MEDS: AMPICILLIN-SULBACTAM 3 GM in SODIUM CHLORIDE 0.9% 100 ML IVPB SCH ×2 (16:19→16:50)
--- NOTE | 2017-07-21 17:12 | P.GSCN ---
History of Present Illness Consult date: 07/21/17 Reason for Consult: possible choelcystitis History of present illness: Patient is a 67 y old female who presents with sever left isded chest pain that radiated to the chest and apigastrium and to the back. She has has GERD like symtpoms. SHe has a history of fibromylagia as well as back surgery and he needs a fentanyl patch for pain control. She smokes 6 cigarettes a day. She is on multiple abdominal operations including lysis of adhesions and total abdominal hysterectomy with nephrectomy. She is complaining of pain in the superior umbilical region from a previous hernia which is not showing up at this time. There was some nausea vomiting presentation it is now resolved. She is now feeling hungry. She is eating without any problems. Passing flatus. She is in there is no history of jaundice regular icterus. She has a history of recurrent urinary tract infection in about on Friday she had hematuria with severe urinary discomfort. This is in consistent with her history of recurrent urinary tract infections for which she is being treated. On for the past week and a half she has also been complaining of increasing shortness of breath and activity. She is using Lasix. She is also complaining of abdominal distention. Although she does not recall having any obstruction obstruction like symptoms. Review of Systems - Constitutional Reports anorexia, Reports fever, Reports sweats, Reports weight gain - EENT Eyes: denies blurred vision Ears, nose, mouth and throat: Denies dysphagia - Cardiovascular Reports chest pain, Reports dyspnea on exertion - Respiratory Reports dyspnea - Gastrointestinal Reports as per HPI - Genitourinary Genitourinary: Reports dysuria, Reports hematuria, Reports urinary frequency - Integumentary Denies rash, Denies unusual bruising - Neurological Denies headaches, Denies syncope - Hematologic/Lymphatic Denies easy bleeding, Denies easy bruising - Allergic/Immunologic Denies as per HPI, Denies allergic rhinitis, Denies anaphylaxis, Denies angioedema, Denies gluten intolerance, Denies persistent infections, Denies seasonal allergies, Denies urticaria, Denies wheezing Past Medical History Past Medical History: Chest Pain / Angina, Heart Failure, COPD, Deep Vein Thrombosis (DVT), GERD/Reflux, Hyperlipidemia, Hypertension, Myocardial Infarction (DE) Additional Past Medical History / Comment(s): "kidney stones and hydronephrosis , UTI's (see's specialist)" Last Myocardial Infarction Date:: 2004 History of Any Multi-Drug Resistant Organisms: None Reported Past Surgical History: Appendectomy, Heart Catheterization With Stent, Hysterectomy, Tonsillectomy Additional Past Surgical History / Comment(s): bilateral ovaries, d&c, right kidney, Past Anesthesia/Blood Transfusion Reactions: No Reported Reaction Date of Last Stent Placement:: 2005 Past Psychological History: Anxiety, Depression Smoking Status: Current every day smoker Past Alcohol Use History: None Reported Past Drug Use History: None Reported - Past Family History Mother Family Medical History: Congestive Heart Failure (CHF), CVA/TIA Father Family Medical History: Cancer Additional Family Medical History / Comment(s): " of lung cancer" Medications and Allergies Home Medications Medication Instructions Recorded Confirmed Type ALPRAZolam [Xanax] 1 mg PO BID 05/06/14 07/20/17 History Acyclovir 400 mg PO BID 05/06/14 07/20/17 History Esomeprazole Magnesium [NexIUM] 40 mg PO DAILY 05/06/14 07/20/17 History FLUoxetine HCL [PROzac] 80 mg PO DAILY 05/06/14 07/20/17 History Furosemide [Lasix] 40 mg PO DAILY 05/06/14 07/20/17 History Levothyroxine Sodium [Synthroid] 50 mcg PO DAILY 05/06/14 07/20/17 History Potassium Chloride [Klor-Con 10] 10 meq PO BID 05/06/14 07/20/17 History Simvastatin [Zocor] 40 mg PO HS 05/06/14 07/20/17 History Acyclovir 5% Oint [Zovirax Oint] 1 applic TOPICAL 5XD PRN 07/20/17 07/20/17 History Albuterol Inhaler [Ventolin Hfa 2 puff INHALATION RT-QID PRN 07/20/17 07/20/17 History Inhaler] Lisinopril [Zestril] 20 mg PO DAILY 07/20/17 07/20/17 History Nitroglycerin Sl Tabs [Nitrostat] 0.4 mg SUBLINGUAL Q5M PRN 07/20/17 07/20/17 History fentaNYL 75MCG/HR PATCH [Duragesic 75 mcg TOPICAL Q72H 07/20/17 07/20/17 History 75MCG/HR] lamoTRIgine [LaMICtal] 100 mg PO BID 07/20/17 07/20/17 History oxyCODONE-APAP 10-325MG [Percocet 1 tab PO Q6HR PRN 07/20/17 07/20/17 History 10-325 mg] traZODone HCL 75 mg PO HS 07/20/17 07/20/17 History Allergies Allergy/AdvReac Type Severity Reaction Status Date / Time betamethasone Allergy Unknown Verified 07/20/17 08:34 [From Celestone] betamethasone sodium Allergy Unknown Verified 07/20/17 08:34 phosphate [From Celestone] Iodinated Contrast- Oral and Allergy Unknown Verified 07/20/17 08:34 IV Dye [Iodinated Contrast Media - IV Dye] NSAIDS (Non-Steroidal Allergy Unknown Verified 07/20/17 08:34 Anti-Inflamma prednisone Allergy Unknown Verified 07/20/17 08:34 rofecoxib [From Vioxx] Allergy Unknown Verified 07/20/17 08:34 sulfamethoxazole Allergy Unknown Verified 07/20/17 08:34 [From Septra] trimethoprim [From Septra] Allergy Unknown Verified 07/20/17 08:34 Surgical - Exam Vital Signs Temp Pulse Resp BP Pulse Ox 98.8 F 50 L 16 179/91 96 07/19/17 21:00 07/19/17 21:00 07/19/17 21:00 07/19/17 21:00 07/19/17 21:00 - General moderate pain - Eyes PERRL, normal ocular movement, pale, no icteric, no deviation, no loss of movement - ENT no hearing loss, no congestion - Respiratory normal expansion, normal respiratory effort - Cardiovascular warm extremities Rhythm: regular - Abdomen vision is mild diffuse tenderness and distention of the abdomen. She is tender around the periumbilical region still photographer in the epigastric region cells tender in the lower abdominal. The Side where she is more tender than the other. Especially when she is distracted. Abdomen: soft - Integumentary no rash, no growths - Neurologic normal coordination - Musculoskeletal normal gait, normal posture - Psychiatric oriented to time, oriented to person, oriented to place, speech is normal, memory intact Results - Labs 07/21/17 05:36 07/21/17 05:36 Abnormal Lab Results - Last 24 Hours (Table) 07/20/17 07/21/17 07/21/17 Range/Units 23:40 05:36 05:36 MCHC 30.6 L (31.0-37.0) g/dL APTT 56.5 H (22.0-30.0) sec TSH 0.400 L (0.465-4.680) mIU/L 07/21/17 Range/Units 05:36 MCHC (31.0-37.0) g/dL APTT 63.7 H (22.0-30.0) sec TSH (0.465-4.680) mIU/L Diabetes panel 07/21/17 Range/Units 05:36 Sodium 140 (137-145) mmol/L Potassium 3.8 (3.5-5.1) mmol/L Chloride 105 (98-107) mmol/L Carbon Dioxide 28 (22-30) mmol/L BUN 13 (7-17) mg/dL Creatinine 0.66 (0.52-1.04) mg/dL Glucose 92 (74-99) mg/dL Calcium 9.1 (8.4-10.2) mg/dL Thyroid panel 07/21/17 Range/Units 05:36 TSH 0.400 L (0.465-4.680) mIU/L Calcium panel 07/21/17 Range/Units 05:36 Calcium 9.1 (8.4-10.2) mg/dL Pituitary panel 07/21/17 Range/Units 05:36 Sodium 140 (137-145) mmol/L Potassium 3.8 (3.5-5.1) mmol/L Chloride 105 (98-107) mmol/L Carbon Dioxide 28 (22-30) mmol/L BUN 13 (7-17) mg/dL Creatinine 0.66 (0.52-1.04) mg/dL Glucose 92 (74-99) mg/dL Calcium 9.1 (8.4-10.2) mg/dL TSH 0.400 L (0.465-4.680) mIU/L Adrenal panel 07/21/17 Range/Units 05:36 Sodium 140 (137-145) mmol/L Potassium 3.8 (3.5-5.1) mmol/L Chloride 105 (98-107) mmol/L Carbon Dioxide 28 (22-30) mmol/L BUN 13 (7-17) mg/dL Creatinine 0.66 (0.52-1.04) mg/dL Glucose 92 (74-99) mg/dL Calcium 9.1 (8.4-10.2) mg/dL - Imaging US - abdomen: report reviewed Assessment and Plan (1) Abdominal pain Current Visit: Yes Status: Acute Code(s): R10.9 - UNSPECIFIED ABDOMINAL PAIN SNOMED Code(s): 44856824 Plan: patient has been in the abdomen from uncertain origin. At this time I would recommend an ultrasound of the kidneys because of her recent history of hematuria which is less than a week ago. Slightly that minimal amount of fluid is not infective and region and just related to her chronic recurrent UTI. I would also recommend HIDA scan however the HIDA scan results may be equivocal because of her dependence on fentanyl. If she is able to eat without any worsening of her pain I will recommend advancing her diet and outpatient evaluation at this time, it does not seem likely that she has a acalculus cholecystitis.
--- NOTE | 2017-07-21 20:04 | US ---
EXAMINATION TYPE: US kidneys/renal and bladder DATE OF EXAM: 07/21/2017 COMPARISON: NONE CLINICAL HISTORY: h/o of uti. EXAM MEASUREMENTS: Right Kidney: 9.2 x 4.9 x 4.7 cm Left Kidney: 9.0 x 4.0 x 4.2 cm Post Void Residual Volume: 3.2 mL Right Kidney: No hydronephrosis or masses seen Left Kidney: No hydronephrosis or masses seen Bladder: wnl Bilateral Jets seen: Yes Normal Post Void Residual: Yes There is no evidence for hydronephrosis at this point in time. No nephrolithiasis is seen. No orly s are identified. The urinary bladder is anechoic. Bilateral ureteral jets are seen. IMPRESSION: No evidence of renal mass or obstruction. Normal bladder emptying.
[2017-07-21] MEDS: traZODone HCL 50 MG TAB PO SCH (20:48)
[2017-07-21] MEDS: ATORVASTATIN 20 MG TAB PO SCH (20:48)
[2017-07-21] MEDS: oxyCODONE-APAP 10-325MG 1 EACH TAB PO PRN (21:35)
[2017-07-22] MEDS: AMPICILLIN-SULBACTAM 3 GM in SODIUM CHLORIDE 0.9% 100 ML IVPB SCH ×5 (00:48→23:43)
[2017-07-22] MEDS: HEPARIN SODIUM,PORCINE 5,000 UNIT/ML 1 ML VIAL SQ SCH ×3 (00:53→23:43)
[2017-07-22] MEDS: NITROGLYCERIN OINT 1 INCH/GM PACKET TOPICAL SCH ×5 (05:15→23:48)
[2017-07-22] MEDS: LEVOTHYROXINE 25 MCG TAB PO SCH (05:45)
--- NOTE | 2017-07-22 09:49 | NM ---
EXAMINATION TYPE: NM hepatobiliary w EF DATE OF EXAM: 07/22/2017 COMPARISON: Ultrasound abdomen 07/20/2017 HISTORY: Abdominal pain, abnormal abdomen ultrasound TECHNIQUE: After the intravenous administration of 5.1 mCi Tc 99m Mebrofenin hepatobiliary scintigrap hy is performed. Immediate images post injection. FINDINGS: There is satisfactory initial accumulation of tracer by the liver. The gallbladder is visualized wit hin 18 minutes. The small bowel activity is noted on delayed images. At one hour 8 ounces of oral e nsure plus is given to mimic CCK and gallbladder ejection fraction is calculated at 65 %, in the norm al range. Therefore there is no scintigraphic evidence of cystic or common bile duct obstruction to suggest acute cholecystitis or gallbladder dyskinesia. Common bile duct is dilated IMPRESSION: There is some delay of clearance into the small bowel. Common bile duct is dilated. Consi kristan upper endoscopy, ERCP.
[2017-07-22 10:37] LABS: CH 28.4; CHCM 29.9; HCT 33.2 % (34.0-46.0); HGB 10.3 gm/dL (11.4-16.0); Hypochromasia Marked; MCH 29.8 pg (25.0-35.0); MCHC 31.2 g/dL (31.0-37.0); MCV 95.6 fL (80.0-100.0); RBC 3.47 m/uL (3.80-5.40); RDW 13.6 % (11.5-15.5); WBC 5.2 k/uL (3.8-10.6)
[2017-07-22 10:47] LABS: ALT 35 U/L (9-52); AST 33 U/L (14-36); Alkaline Phosphatase 39 U/L (38-126); Anion Gap 6 mmol/L; Blood Urea Nitrogen 10 mg/dL (7-17); Calcium 7.2 mg/dL (8.4-10.2); Carbon Dioxide 21 mmol/L (22-30); Chloride 115 mmol/L (98-107); Glucose 68 mg/dL (74-99); Non-African American GFR(MDRD) >60 (>60 ml/min/1.73 sqM); Potassium 3.2 mmol/L (3.5-5.1); Sodium 142 mmol/L (137-145); Total Bilirubin 0.2 mg/dL (0.2-1.3); Total Protein 4.7 g/dL (6.3-8.2)
[2017-07-22] MEDS: FLUoxetine HCL 20 MG CAP PO SCH (10:50)
[2017-07-22] MEDS: PANTOPRAZOLE 40 MG TABLET PO SCH (10:51)
[2017-07-22] MEDS: ASPIRIN 325 MG TAB PO SCH (10:52)
[2017-07-22] MEDS: ACYCLOVIR 200 MG CAP PO SCH ×2 (10:52→21:57)
[2017-07-22] MEDS: FUROSEMIDE 40 MG TAB PO SCH (10:53)
[2017-07-22] MEDS: lamoTRIgine 100 MG TAB PO SCH ×2 (10:53→22:00)
[2017-07-22] MEDS: LISINOPRIL 20 MG TAB PO SCH (10:54)
[2017-07-22] MEDS: MAG HYDROX/AL HYDROX/SIMETH 30 ML CUP PO SCH ×5 (10:56→22:50)
[2017-07-22 12:35] LABS: Appearance,Urine Clear (Clear); Bacteria,Urine Rare /hpf; Bilirubin,Urine Negative (Negative); Glucose,Urine (UA) Negative (Negative); Ketones,Urine Negative (Negative); Leukocyte Esterase,Urine Negative (Negative); Nitrite,Urine Negative (Negative); Particle Count 359; Protein,Urine Negative (Negative); RBC,Urine 5 /hpf (0-5); Specific Gravity,Urine 1.011 (1.001-1.035); Squamous Epithelial Cell,Urine 1 /hpf (0-4); UA Billing (MACRO vs. MICRO) MICRO; Urobilinogen,Urine <2.0 mg/dL (<2.0); WBC,Urine <1 /hpf (0-5)
[2017-07-22] MEDS: oxyCODONE-APAP 10-325MG 1 EACH TAB PO PRN ×2 (12:35→18:46)
[2017-07-22] MEDS: ALPRAZolam 0.5 MG TAB PO PRN (12:35)
--- NOTE | 2017-07-22 15:18 | P.PN ---
<Asmita Quintana - Last Filed: 07/22/17 16:10> Subjective Progress Note Date: 07/22/17 67-year-old female seen and examined. Patient did undergo the HIDA scan which was felt to be equivocal given that the patient as a fentanyl patch for pain control patient continues to report having abdominal discomfort patient states the pain is not as intense but continues to rub her abdomen stating it feels like it hurts all over nausea no vomiting Objective - Vital Signs Vital signs: Vital Signs Temp 97.8 F 07/22/17 07:00 Pulse 52 L 07/22/17 09:15 Resp 16 07/22/17 09:15 BP 116/58 07/22/17 07:00 Pulse Ox 94 L 07/22/17 07:00 Intake & Output 07/21/17 07/22/17 07/22/17 18:59 06:59 18:59 Intake Total 1308 240 Output Total 400 Balance 908 240 Weight 53.5 kg Intake: IV 168 Heparin Sodium,Porcine/ 168 D5w Pmx 25,000 unit In Dextrose/Water 1 500ml. bag @ 12 UNITS/KG/HR 11. 97 mls/hr IV .Q24H [facility] Rx #:[id number] Oral 1140 Blood Product 240 Output: Urine 400 Other: Voiding Method Toilet Toilet Diaper # Voids 1 - Exam Physical exam GENERAL APPEARANCE: 67-year-old female patient is alert, oriented, in no acute distress. VITAL SIGNS: Reviewed HEENT: Head is normocephalic and atraumatic. Pupils are equal and reactive. The nares are patent. Oropharynx is clear without lesions. NECK: Supple without lymphadenopathy. Traches midline. HEART: S1, S2. Regular rate and rhythm. Denies chest pain LUNGS: No crackles or wheezes are heard. Good air movement bilaterally on room air ABDOMEN: Soft, slight tenderness nondistended with good bowel sounds. No peritoneal signs. No palpable organomegaly or masses. EXTREMITIES: Normal skin color and turgor. No cyanosis, rash, ulceration, clubbing or edema. Radial pedal pulses are 2/4 bilaterally. NEUROLOGICAL: No focal deficits. Strength and sensation are grossly intact. - Labs CBC & Chem 7: 07/22/17 09:53 07/22/17 09:53 Labs: Abnormal Lab Results - Last 24 Hours (Table) 07/22/17 07/22/17 07/22/17 Range/Units 09:53 09:53 12:05 RBC 3.47 L (3.80-5.40) m/uL Hgb 10.3 L (11.4-16.0) gm/dL Hct 33.2 L (34.0-46.0) % Potassium 3.2 L (3.5-5.1) mmol/L Chloride 115 H (98-107) mmol/L Carbon Dioxide 21 L (22-30) mmol/L Creatinine 0.49 L (0.52-1.04) mg/dL Glucose 68 L (74-99) mg/dL Calcium 7.2 L (8.4-10.2) mg/dL Total Protein 4.7 L (6.3-8.2) g/dL Albumin 2.6 L (3.5-5.0) g/dL Urine Blood Small H (Negative) Urine Bacteria Rare H (None) /hpf Assessment and Plan Assessment: Impression Abdominal pain uncertain etiology HIDA scan equivocal secondary to dependence of fentanyl Chronic recurrent UTI Chest pain atypical felt not to be non-cardiac COPD without evidence of an acute exacerbation Hyperlipidemia Esophageal reflux disease Plan No evidence of an acute surgical abdomen at this time defer to the attending for further recommendations for medical management sign off and re-eval as needed The above impression and plan of care have been discussed and directed by signing physician. Asmita Quintana nurse practitioner acting as scribe for signing physician. <Carroll,Ahmad W - Last Filed: 07/23/17 13:55> Objective - Vital Signs Vital signs: Vital Signs Temp 98.1 F 07/23/17 07:00 Pulse 50 L 07/23/17 07:15 Resp 18 07/23/17 07:00 BP 138/67 07/23/17 07:00 Pulse Ox 94 L 07/23/17 07:00 Intake & Output 07/22/17 07/23/17 07/23/17 18:59 06:59 18:59 Intake Total 350 480 Balance 350 480 Weight 53.9 kg Intake: Intake, IV Titration 100 Amount Ampicillin-Sulbactam 3 gm 100 In Sodium Chloride 0.9% 100 ml @ 100 mls/hr IVPB Q6HR [facility] Rx#:[id number] Oral 250 480 Other: Voiding Method Toilet Toilet Toilet # Voids 1 2 - Labs CBC & Chem 7: 07/23/17 07:38 07/23/17 07:38 Labs: Abnormal Lab Results - Last 24 Hours (Table) 07/23/17 07/23/17 Range/Units 07:38 07:38 RBC 3.61 L (3.80-5.40) m/uL Hgb 10.8 L (11.4-16.0) gm/dL AST 44 H (14-36) U/L Total Protein 5.7 L (6.3-8.2) g/dL Albumin 3.3 L (3.5-5.0) g/dL Assessment and Plan (1) Abdominal pain Current Visit: Yes Status: Acute Code(s): R10.9 - UNSPECIFIED ABDOMINAL PAIN SNOMED Code(s): 66327102
--- NOTE | 2017-07-22 16:27 | P.PN ---
Subjective Progress Note Date: 07/22/17 Patient seen bedside no acute events overnight per nursing staff patient states her abdominal pain is much improved she has a fevers or chills patient was seen to be tolerating liquid diet she is pending surgical consult. Objective - Vital Signs Vital signs: Vital Signs Temp 97.8 F 07/22/17 07:00 Pulse 52 L 07/22/17 09:15 Resp 16 07/22/17 09:15 BP 116/58 07/22/17 07:00 Pulse Ox 94 L 07/22/17 07:00 Intake & Output 07/21/17 07/22/17 07/22/17 18:59 06:59 18:59 Intake Total 1308 240 Output Total 400 Balance 908 240 Weight 53.5 kg Intake: IV 168 Heparin Sodium,Porcine/ 168 D5w Pmx 25,000 unit In Dextrose/Water 1 500ml. bag @ 12 UNITS/KG/HR 11. 97 mls/hr IV .Q24H [facility] Rx #:[id number] Oral 1140 Blood Product 240 Output: Urine 400 Other: Voiding Method Toilet Toilet Diaper # Voids 1 - Exam PHYSICAL EXAMINATION: GENERAL: The patient is alert and oriented x3, not in any acute distress. Well developed, well nourished. Looks older than stated age she is calm and cooperative nontoxic-appearing HEENT: Pupils are round and equally reacting to light. EOMI. No scleral icterus. No conjunctival pallor. Normocephalic, atraumatic. No pharyngeal erythema. No thyromegaly. CARDIOVASCULAR: S1 and S2 present. No murmurs, rubs, or gallops. PULMONARY: Chest is clear to auscultation, no wheezing or crackles. ABDOMEN: Soft, mild that right upper quadrant and epigastric tenderness, there is ventral abdominal hernia that protrudes with cough nondistended, normoactive bowel sounds. No palpable organomegaly. MUSCULOSKELETAL: No joint swelling or deformity. EXTREMITIES: No cyanosis, clubbing, or pedal edema. NEUROLOGICAL: Gross neurological examination did not reveal any focal deficits. SKIN: No rashes. - Labs CBC & Chem 7: 07/22/17 09:53 07/22/17 09:53 Labs: Abnormal Lab Results - Last 24 Hours (Table) 07/22/17 07/22/17 07/22/17 Range/Units 09:53 09:53 12:05 RBC 3.47 L (3.80-5.40) m/uL Hgb 10.3 L (11.4-16.0) gm/dL Hct 33.2 L (34.0-46.0) % Potassium 3.2 L (3.5-5.1) mmol/L Chloride 115 H (98-107) mmol/L Carbon Dioxide 21 L (22-30) mmol/L Creatinine 0.49 L (0.52-1.04) mg/dL Glucose 68 L (74-99) mg/dL Calcium 7.2 L (8.4-10.2) mg/dL Total Protein 4.7 L (6.3-8.2) g/dL Albumin 2.6 L (3.5-5.0) g/dL Urine Blood Small H (Negative) Urine Bacteria Rare H (None) /hpf - Imaging and Cardiology HIDA scan conducted on 07/22/2017. Conclusion there is some delayed clearance to the small bowel, bile duct is dilated consider upper endoscopy/ERCP Assessment and Plan Assessment: Plan: #1 chest pain: Rule out acute coronary syndromes patient mostly has pain related to musculoskeletal versus gallbladder or cholecystitis surgery was consulted abnormal ultrasound of the right upper quadrant, HIDA scan done 2016 that showed the above-mentioned surgery recommended unlikely cholecystitis no acute surgical intervention recommend outpatient follow-up, patient I could be advanced as tolerated #2COPD without any acute exacerbation, doesn't do not in acute exacerbation #3 DVT history continue home medications #4 gases patient reflux disease #5 hyperlipidemia continue home medications #6 hypertension #7 coronary artery disease in the past #9 fibromyalgia 10 sick euthyroid syndrome TSH need to be repeated again. In 4-6 weeks #11 Migraine improved symptoms with Imitrex #12 hypokalemia we'll replace with 40 Meq oral Further recommendation to follow pending clinical course
[2017-07-22] MEDS: traZODone HCL 50 MG TAB PO SCH (21:58)
[2017-07-22] MEDS: ATORVASTATIN 20 MG TAB PO SCH (22:00)
[2017-07-23] MEDS ORDERED: HEPARIN SODIUM,PORCINE 5,000 UNIT/ML 1 ML VIAL SQ SCH
[2017-07-23] MEDS: AMPICILLIN-SULBACTAM 3 GM in SODIUM CHLORIDE 0.9% 100 ML IVPB SCH ×3 (06:05→17:40)
[2017-07-23] MEDS: NITROGLYCERIN OINT 1 INCH/GM PACKET TOPICAL SCH ×2 (06:18→12:16)
[2017-07-23] MEDS: LEVOTHYROXINE 25 MCG TAB PO SCH (06:35)
[2017-07-23] MEDS: MAG HYDROX/AL HYDROX/SIMETH 30 ML CUP PO SCH ×3 (07:50→17:40)
[2017-07-23] MEDS: lamoTRIgine 100 MG TAB PO SCH (07:50)
[2017-07-23] MEDS: FLUoxetine HCL 20 MG CAP PO SCH (07:51)
[2017-07-23] MEDS: FUROSEMIDE 40 MG TAB PO SCH (07:51)
[2017-07-23] MEDS: LISINOPRIL 20 MG TAB PO SCH (07:51)
[2017-07-23] MEDS: PANTOPRAZOLE 40 MG TABLET PO SCH (07:52)
[2017-07-23] MEDS: ACYCLOVIR 200 MG CAP PO SCH (07:52)
[2017-07-23] MEDS: ASPIRIN 325 MG TAB PO SCH (07:52)
[2017-07-23] MEDS: oxyCODONE-APAP 10-325MG 1 EACH TAB PO PRN (07:57)
[2017-07-23 08:31] LABS: CH 29.8; CHCM 31.1; HCT 34.8 % (34.0-46.0); HDW 2.45; HGB 10.8 gm/dL (11.4-16.0); Hypochromasia Slight; MCHC 31.1 g/dL (31.0-37.0); MCV 96.4 fL (80.0-100.0); Mean Platelet Volume 6.4; RBC 3.61 m/uL (3.80-5.40); RDW 12.7 % (11.5-15.5); WBC 5.9 k/uL (3.8-10.6)
[2017-07-23 09:15] LABS: ALT 39 U/L (9-52); AST 44 U/L (14-36); Alkaline Phosphatase 74 U/L (38-126); Anion Gap 5 mmol/L; Blood Urea Nitrogen 12 mg/dL (7-17); Carbon Dioxide 30 mmol/L (22-30); Chloride 104 mmol/L (98-107); Glucose 79 mg/dL (74-99); Non-African American GFR(MDRD) >60 (>60 ml/min/1.73 sqM); Sodium 139 mmol/L (137-145); Total Bilirubin 0.2 mg/dL (0.2-1.3); Total Protein 5.7 g/dL (6.3-8.2)
[2017-07-23] MEDS: HEPARIN SODIUM,PORCINE 5,000 UNIT/ML 1 ML VIAL SQ SCH (12:15)
[2017-07-23 15:47] VITALS: BP 98/48; PULSE 64; RESP 16; TEMP 98
--- NOTE | 2017-07-23 15:51 | P.DS ---
Providers Date of admission: 07/19/17 21:55 Expected date of discharge: 07/23/17 Attending physician: Jovanni Parmar Consults: 07/21/17 12:14 Consult Physician Routine Consulting Provider: Char Hair Consult Reason/Comments: Cholelithiasis possible cholecystitis Do you want consulting provider notified?: Yes Primary care physician: [facility] Course: 67-year-old female with known history of CAD with previous stenting in [facility] came came in with complaints of chest pain was started day prior to admission which lasted for 45 minutes , nonexertional not relieved by nitroglycerin, no associated diaphoresis, but had nausea nausea will persisted vomiting not related to food nonpleuritic in nature, Cardiac enzymes were checked and came to be unremarkable and EKG was normal sinus rhythm with no acute changes. An ultrasound of the abdomen was performed which revealed a small amount of. Cholecystic fluid which may represent simple ascites, please correlate to exclude acalculous cholecystitis.chocardiogram with Doppler study was performed which revealed an ejection fraction of 55-60%. LA is severely dilated. Patient did undergo the HIDA scan which was felt to be equivocal given that the patient as a fentanyl patch for pain her pain was reproducible on all occasions Pain conrtol was achived through pain medications, epatient was on tele and no reported Cardiac arrythmis weer noted, she was discharge dale ein stable condition Pertinent Studies: HIDA Scan Patient Condition at Discharge: Good Plan - Discharge Summary Discharge Rx Participant: No New Discharge Prescriptions: Continue ALPRAZolam [Xanax] 1 mg PO BID Potassium Chloride [Klor-Con 10] 10 meq PO BID Levothyroxine Sodium [Synthroid] 50 mcg PO DAILY FLUoxetine HCL [PROzac] 80 mg PO DAILY Furosemide [Lasix] 40 mg PO DAILY Esomeprazole Magnesium [NexIUM] 40 mg PO DAILY Acyclovir 400 mg PO BID Simvastatin [Zocor] 40 mg PO HS fentaNYL 75MCG/HR PATCH [Duragesic 75MCG/HR] 75 mcg TOPICAL Q72H oxyCODONE-APAP 10-325MG [Percocet 10-325 mg] 1 tab PO Q6HR PRN PRN Reason: Pain Albuterol Inhaler [Ventolin Hfa Inhaler] 2 puff INHALATION RT-QID PRN PRN Reason: Shortness Of Breath Acyclovir 5% Oint [Zovirax Oint] 1 applic TOPICAL 5XD PRN PRN Reason: OUTBREAK lamoTRIgine [LaMICtal] 100 mg PO BID Nitroglycerin Sl Tabs [Nitrostat] 0.4 mg SUBLINGUAL Q5M PRN PRN Reason: Chest Pain Lisinopril [Zestril] 20 mg PO DAILY traZODone HCL 75 mg PO HS Discharge Medication List ALPRAZolam [Xanax] 1 mg PO BID 05/06/14 [History] Acyclovir 400 mg PO BID 05/06/14 [History] Esomeprazole Magnesium [NexIUM] 40 mg PO DAILY 05/06/14 [History] FLUoxetine HCL [PROzac] 80 mg PO DAILY 05/06/14 [History] Furosemide [Lasix] 40 mg PO DAILY 05/06/14 [History] Levothyroxine Sodium [Synthroid] 50 mcg PO DAILY 05/06/14 [History] Potassium Chloride [Klor-Con 10] 10 meq PO BID 05/06/14 [History] Simvastatin [Zocor] 40 mg PO HS 05/06/14 [History] Acyclovir 5% Oint [Zovirax Oint] 1 applic TOPICAL 5XD PRN 07/20/17 [History] Albuterol Inhaler [Ventolin Hfa Inhaler] 2 puff INHALATION RT-QID PRN 07/20/17 [ History] Lisinopril [Zestril] 20 mg PO DAILY 07/20/17 [History] Nitroglycerin Sl Tabs [Nitrostat] 0.4 mg SUBLINGUAL Q5M PRN 07/20/17 [History] fentaNYL 75MCG/HR PATCH [Duragesic 75MCG/HR] 75 mcg TOPICAL Q72H 07/20/17 [ History] lamoTRIgine [LaMICtal] 100 mg PO BID 07/20/17 [History] oxyCODONE-APAP 10-325MG [Percocet 10-325 mg] 1 tab PO Q6HR PRN 07/20/17 [History ] traZODone HCL 75 mg PO HS 07/20/17 [History] Follow up Appointment(s)/Referral(s): Cande Lancaster MD [Primary Care Provider] - 1-2 days Discharge Disposition: HOME SELF-CARE
== END 2017-07-23 17:46 | disposition home or self-care (01) | DRG 392 ==
LOC: EC 20:49 → 6SEL 21:55 → OBSVTOIN 21:55 → 6SEL 23:00 → 5MS5E 07-21 22:11
PROVIDERS: ADMIT Hospitalist; ATTEND Hospitalist
DX: R10.13 Epigastric pain (principal); I11.0 Hypertensive heart disease with heart failure; I50.9 Heart failure, unspecified; R18.8 Other ascites; I25.110 Atherosclerotic heart disease of native coronary artery with unstable angina pectoris; N39.0 Urinary tract infection, site not specified; J44.9 Chronic obstructive pulmonary disease, unspecified; F32.9 Major depressive disorder, single episode, unspecified; E78.5 Hyperlipidemia, unspecified; R07.89 Other chest pain; F17.210 Nicotine dependence, cigarettes, uncomplicated; F41.9 Anxiety disorder, unspecified; G43.909 Migraine, unspecified, not intractable, without status migrainosus; G89.4 Chronic pain syndrome; I25.2 Old myocardial infarction; K21.9 Gastro-esophageal reflux disease without esophagitis; M79.7 Fibromyalgia; Z79.02 Long term (current) use of antithrombotics/antiplatelets; Z79.82 Long term (current) use of aspirin; Z79.899 Other long term (current) drug therapy; Z82.49 Family history of ischemic heart disease and other diseases of the circulatory system; Z86.718 Personal history of other venous thrombosis and embolism; Z87.440 Personal history of urinary (tract) infections; Z95.5 Presence of coronary angioplasty implant and graft; E87.6 Hypokalemia; R11.2 Nausea with vomiting, unspecified; Z79.891 Long term (current) use of opiate analgesic; Z90.5 Acquired absence of kidney; M54.5 Low back pain; R63.0 Anorexia; Z68.21 Body mass index [BMI] 21.0-21.9, adult; Z87.442 Personal history of urinary calculi
CPT/HCPCS: 36415; 76700; 76770; 78226; 80048; 80053; 80061; 81001; 82550; 82553; 83735; 84439; 84443; 84484; 85025; 85027; 85610; 85730; 93005; 93306; 96365; 96375; 96376; 99291

== ENCOUNTER → 2018-10-13 | Outpatient (CLI) | payer MEDICARE ==
--- NOTE | 2018-10-16 08:50 | MM ---
Reason for exam: screening (asymptomatic). Last mammogram was performed 1 year and 6 months ago. History: Patient is postmenopausal. Family history of breast cancer in cousin at age 66. Physical Findings: A clinical breast exam by your physician is recommended on an annual basis and results should be correlated with mammographic findings. MG 3D Screening Mammo W/Cad Bilateral CC and MLO view(s) were taken. Prior study comparison: April 25, 2017, bilateral MG 3d diag mammo w/cad [facility]. June 30, 2014, bilateral MG diagnostic mammo w CAD [facility]. There are scattered fibroglandular densities. No significant changes when compared with prior studies. ASSESSMENT: Negative, BI-RAD 1 RECOMMENDATION: Routine screening mammogram of both breasts in 1 year. Patient should continue monthly self breast exams. A negative report should not preclude additional follow up of suspicious palpable abnormalities.
== END | disposition home or self-care (01) ==
LOC: RADMAMWWP 13:54
PROVIDERS: ATTEND Family Medicine
DX: Z12.31 Encounter for screening mammogram for malignant neoplasm of breast (principal)
CPT/HCPCS: 77063; 77067

== ENCOUNTER 2021-10-12 06:16 | Day surgery (SDC) | payer MEDICARE ==
[2021-10-05 13:49] VITALS: BMI 19.9
--- NOTE | 2021-10-11 18:56 | P.GSHP ---
History of Present Illness H&P Date: 10/11/21 Chief Complaint: Incarcerated ventral hernia 71-year-old female last seen in the office December last year. Patient describes an increasing bulge above the umbilicus. Mild pain at times. No change in bowel habits. When she saw me last time the patient was still smoking although such she was working on smoking cessation. Coming in for elective repair incarcerated ventral hernia with mesh. Past Medical History Past Medical History: Chest Pain / Angina, COPD, Deep Vein Thrombosis (DVT), Fibromyalgia, GERD/Reflux, Hyperlipidemia, Hypertension, Myocardial Infarction (NM), Osteoarthritis (OA) Additional Past Medical History / Comment(s): HAD COVID IN DECEMBER 2019 AND IN 2020. "kidney stones and hydronephrosis, UTI's (see's specialist)" Last Myocardial Infarction Date:: 2004 History of Any Multi-Drug Resistant Organisms: None Reported Past Surgical History: Appendectomy, Back Surgery, Heart Catheterization With Stent, Hysterectomy, Tonsillectomy Additional Past Surgical History / Comment(s): BACK SURGERY (RODS). Bilateral ovaries. D & C. Right kidney, STONES ,CYSTO Past Anesthesia/Blood Transfusion Reactions: No Reported Reaction Date of Last Stent Placement:: 2005 Smoking Status: Current every day smoker - Past Family History Mother Family Medical History: Congestive Heart Failure (CHF), CVA/TIA Father Family Medical History: Cancer Additional Family Medical History / Comment(s): " of lung cancer" Medications and Allergies Home Medications Medication Instructions Recorded Confirmed Type Acyclovir 400 mg PO BID 05/06/14 10/05/21 History Esomeprazole Magnesium [NexIUM] 40 mg PO QAM 05/06/14 10/05/21 History FLUoxetine HCL [PROzac] 80 mg PO QAM 05/06/14 10/05/21 History Furosemide [Lasix] 40 mg PO QAM 05/06/14 10/05/21 History Potassium Chloride [Klor-Con 10] 10 meq PO BID 05/06/14 10/05/21 History Simvastatin [Zocor] 40 mg PO HS 05/06/14 10/05/21 History Acyclovir 5% Oint [Zovirax Oint] 1 applic TOPICAL 5XD PRN 07/20/17 10/05/21 History Nitroglycerin Sl Tabs [Nitrostat] 0.4 mg SUBLINGUAL Q5M PRN 07/20/17 10/05/21 History lamoTRIgine [LaMICtal] 100 mg PO QAM 07/20/17 10/05/21 History lisinopriL [Zestril] 20 mg PO QAM 07/20/17 10/05/21 History oxyCODONE-APAP 10-325MG [Percocet 1 tab PO Q4-6H PRN 07/20/17 10/05/21 History 10-325 mg] traZODone HCL 75 mg PO HS 07/20/17 10/05/21 History Albuterol Sulfate [Proair Hfa] 1 puff INHALATION QID PRN 09/13/21 10/05/21 History Levothyroxine Sodium 25 mcg PO QAM 09/13/21 10/05/21 History amLODIPine [Norvasc] 5 mg PO QAM 09/13/21 10/05/21 History tiZANidine [Zanaflex] 4 mg PO TID PRN 09/13/21 10/05/21 History Allergies Allergy/AdvReac Type Severity Reaction Status Date / Time betamethasone Allergy Unknown Verified 10/05/21 13:33 [From Celestone] betamethasone sodium Allergy Unknown Verified 10/05/21 13:33 phosphate [From Celestone] Iodinated Contrast Media Allergy Unknown Verified 10/05/21 13:33 [Iodinated Contrast Media - IV Dye] NSAIDS (Non-Steroidal Allergy Unknown Verified 10/05/21 13:33 Anti-Inflamma prednisone Allergy Unknown Verified 10/05/21 13:33 rofecoxib [From Vioxx] Allergy Unknown Verified 10/05/21 13:33 sulfamethoxazole Allergy Unknown Verified 10/05/21 13:33 [From Septra] trimethoprim [From Septra] Allergy Unknown Verified 10/05/21 13:33 Surgical - Exam Physical exam: General: Well-developed, well-nourished HEENT: Normocephalic, sclerae nonicteric Abdomen: Nontender, nondistended, incarcerated ventral hernia 5 cm superior to umbilicus, moderate sized Extremities: No edema Neuro: Alert and oriented Assessment and Plan (1) Incarcerated ventral hernia Narrative/Plan: 71-year-old female with incarcerated ventral hernia. We'll proceed with open repair incarcerated ventral hernia with mesh. Risks of bleeding, infection, recurrence, bladder and bowel injury, numbness, nerve injury, cardiac complications were discussed with the patient. The patient understands and wishes to proceed. Status: Acute Code(s): K43.6 - OTHER AND UNSP VENTRAL HERNIA WITH OBSTRUCTION, W/O GANGRENE SNOMED Code(s): 529402010
[~2021-10-12 06:16] MED LIST: ACETAMINOPHEN TAB 500 MG TAB PO PRN; HEPARIN SODIUM,PORCINE/PF 5,000 UNIT/0.5 ML SYRINGE SQ PRN
[2021-10-12] MEDS ORDERED: ONDANSETRON 4 MG/2 ML VIAL IVP ONE (06:19)
[2021-10-12] MEDS ORDERED: LACTATED RINGERS 1,000 ML IV SCH (06:19)
[2021-10-12] MEDS ORDERED: HYDROmorphone 0.5 MG/0.5 ML SYRINGE IVP PRN (06:19)
[2021-10-12] MEDS ORDERED: LIDOCAINE 1% (10MG/ML) FOR IV START INTRADERMA ONE (07:10)
[2021-10-12 07:22] LABS: Glucose,Whole Blood 81 mg/dL (75-99)
[2021-10-12] MEDS ORDERED: MIDAZOLAM 2 MG/2 ML VIAL IV ONE (07:39)
[2021-10-12 07:45] LABS: Basophils % (A) 1 %; Eosinophils # (A) 0.1 k/uL (0-0.7); Eosinophils % (A) 2 %; HCT 35.4 % (34.0-46.0); HGB 11.4 gm/dL (11.4-16.0); Lymphocytes # (A) 1.7 k/uL (1.0-4.8); Lymphocytes % (A) 23 %; MCHC 32.1 g/dL (31.0-37.0); MCV 93.6 fL (80.0-100.0); Mean Platelet Volume 6.7; Monocytes # (A) 0.3 k/uL (0-1.0); Monocytes % (A) 5 %; Neutrophils # (A) 4.9 k/uL (1.3-7.7); Neutrophils % (A) 68 %; Platelet Count 202 k/uL (150-450); RBC 3.79 m/uL (3.80-5.40); RDW 13.2 % (11.5-15.5); WBC 7.3 k/uL (3.8-10.6)
[2021-10-12 07:50] LABS: Partial Thromboplastin Time 27.2 sec (22.0-30.0)
[2021-10-12 07:51] LABS: African American GFR (CKD) >90 (>60 ml/min/1.73 sqM); Anion Gap 8 mmol/L; Blood Urea Nitrogen 7 mg/dL (7-17); Calcium 9.8 mg/dL (8.4-10.2); Carbon Dioxide 25 mmol/L (22-30); Chloride 103 mmol/L (98-107); Glucose 85 mg/dL (74-99); Non-African American GFR(CKD) >90 (>60 ml/min/1.73 sqM); Potassium 3.7 mmol/L (3.5-5.1); Sodium 136 mmol/L (137-145)
[2021-10-12] MEDS ORDERED: BUPIVACAINE (PF) 0.25% 30 ML VIAL SQ ONE ×2 (07:57→08:54)
[2021-10-12] MEDS ORDERED: LIDOCAINE 1% INJ 10MG/ML (20 ML MDV) ONE (08:11)
[2021-10-12] MEDS ORDERED: MIDAZOLAM 2 MG/2 ML VIAL ONE (08:11)
[2021-10-12] MEDS ORDERED: fentaNYL (PF) 50 MCG/ML 2 ML AMP ONE (08:11)
[2021-10-12] MEDS ORDERED: SUCCINYLCHOLINE CHLORIDE 100 MG/5 ML SYR IV ONE (08:11)
[2021-10-12] MEDS ORDERED: ROPIVACAINE 5 MG/ML 30 ML VIAL ONE (08:11)
[2021-10-12] MEDS ORDERED: ePHEDrine 50 MG/ML 1 ML AMP ONE (08:11)
[2021-10-12] MEDS ORDERED: PROPOFOL 10 MG/ML 20 ML VIAL IV ONE (08:11)
--- NOTE | 2021-10-12 08:44 | P.ANPRN ---
Procedure Note - Anesthesia - Nerve Block Performed Bilateral Rectus Abdominis Single Time Out Performed: Yes Date of Procedure: 10/12/21 Procedure Start Time: 07:38 Procedure Stop Time: 07:48 Location of Patient: PreOp Indication: Acute Post-Operative Pain, Requested by Surgeon Sedation Type: Sedate with meaningful contact maintained Preparation: Sterile Prep, Sterile Dressing Position: Supine Catheter: None Needle Types: Facet Needle Gauge: 20 Ultrasound used to visualize needle placement: Yes Ultrasound used to observe medication spread: Yes Injectate: 0.5% Ropivacaine (see comment for volume) (15 ml per side) Blood Aspirated: No Pain Paresthesia on Injection Noted: No Resistance on Injection: Normal Image Stored and Saved: Yes Events: Uneventful and Well Tolerated
[2021-10-12 09:12] VITALS: TEMP 98
--- NOTE | 2021-10-12 09:17 | P.OP ---
Date of Procedure: 10/12/21 Procedure(s) Performed: PREOPERATIVE DIAGNOSIS: Incarcerated ventral hernia POSTOPERATIVE DIAGNOSIS: Same PROCEDURE: Repair incarcerated ventral hernia with mesh SURGEON: Dr. Kendall ANESTHESIA: General OPERATIVE PROCEDURE DETAILS: Patient placed on the operating table in the supine position. Abdomen was prepped and draped in usual sterile fashion. A vertical incision was then made superior to the umbilicus by approximately 6 cm. Dissection through the subcutaneous tissues took place using electrocautery. The patient had a total of 2 fascial defects identified. The largest defect was 1.2 cm in size. An immediately adjacent defect measured 3-4 mm in size. These were included into one opening measuring 1.6 cm. The preperitoneal space was carefully dissected. A small rent in the peritoneum was identified and closed using a running 3-0 Vicryl stitch. Once we had adequate space in the preper itoneal space a ventral ex's 4.3 cm mesh was placed in a sub-lay position. This was sutured to the overlying fascia using trans-fascial 0 Ethibond sutures. The defect was then closed in overlapping manner using interrupted horizontal mattress sutures of 0 Ethibond. The folding edge was tacked down using interrupted 0 Ethibond sutures as well. The subcutaneous tissues were closed using 3-0 Vicryl sutures. The skin was closed using a running 4-0 Monocryl suture. Skin glue and sterile dressings were applied. HERNIA CHARACTERISTICS: Length: 1.6 cm Width: 1 cm Type: Incarcerated ventral TYPE OF MESH USED: 4.3 cm ventral ex LOCATION OF MESH: Sub-lay FIXATION: Trans-fascial 0 Ethibond sutures DISPOSITION: Stable to recovery room
[2021-10-12 10:26] VITALS: RESP 16
[2021-10-12] MEDS ORDERED: oxyCODONE-APAP 10-325MG 1 EACH TAB PO SCH (10:30)
[2021-10-12 11:09] VITALS: BP 133/68; PULSE 60
[2021-10-12] MEDS ORDERED: ACETAMINOPHEN TAB 325 MG TAB PO SCH (12:00)
[2021-10-12] MEDS ORDERED: IBUPROFEN 600 MG TAB PO SCH (12:15)
== END 2021-10-12 11:29 | disposition home or self-care (01) ==
LOC: OR 06:16
PROVIDERS: ATTEND Surgery
DX: K43.9 Ventral hernia without obstruction or gangrene (principal); Z20.822 Contact with and (suspected) exposure to COVID-19; J44.9 Chronic obstructive pulmonary disease, unspecified; E78.5 Hyperlipidemia, unspecified; I10 Essential (primary) hypertension; I25.2 Old myocardial infarction; M19.90 Unspecified osteoarthritis, unspecified site; Z86.718 Personal history of other venous thrombosis and embolism
CPT/HCPCS: 49561; 64999; 80048; 85025; 85610; 85730; 87635; C1781; J2250; J0690; J2405; J2001; J3010; J2795; J0330; J2704; J1644

== ENCOUNTER → 2022-01-11 | Outpatient (CLI) | payer MEDICARE ==
--- NOTE | 2022-01-14 11:39 | CT ---
EXAMINATION TYPE: CT abdomen pelvis wo con DATE OF EXAM: 01/11/2022 COMPARISON: 09/02/2013 INDICATION: Chronic R flank pain and UTI's, hx of renal stones. DLP: 226.2 mGycm, Automated exposure control for dose reduction was used. CONTRAST: 0 mL of Isovue 300. Study performed without Oral Contrast TECHNIQUE: Axial images were obtained from above the diaphragm to the pubic rami in the axial plane a t 5 mm thick sections. Reconstructed images are reviewed on the computer in the coronal plane. FINDINGS: Limited CT sections are obtained the lung bases. Some minimal compressive atelectasis of the right p osterior lung base is present. Some emphysematous changes are present. Coronary artery calcification is noted. Some reflux into the distal esophagus is evident. CT ABDOMEN: Liver: Normal Spleen: Normal Pancreas: Normal Adrenal glands: The adrenal glands are normal. Gallbladder: Normal Kidneys: No masses are evident. No hydronephrosis is present. No cysts are present. No renal stone s are evident. Aorta: Vascular calcification is within the aorta. Inferior vena cava: Normal. CT PELVIS: Loops of bowel within the abdomen and pelvis are normal. The study is performed without oral cont rast limiting bowel evaluation. Appendix: Not identified. No dilated tubular structure or inflammatory changes evident. Urinary bladder: Normal. Genitourinary structures: Uterus and ovaries are not identified. Osseous structures: No suspicious lytic or sclerotic lesions. Postsurgical changes are within the lum bar spine. This causes beam hardening artifact in some limitation. Portions of the evaluation. IMPRESSIONS: 1. Minimal infiltrate in the posterior right lung base. Correlate for compressive atelectasis. 2. No suspicious renal stones identified. No hydronephrosis or hydroureter evident.
== END | disposition home or self-care (01) ==
LOC: RADCTMAIN 16:44
PROVIDERS: ATTEND Urology
DX: R91.8 Other nonspecific abnormal finding of lung field (principal); R10.9 Unspecified abdominal pain; Z87.440 Personal history of urinary (tract) infections; Z87.442 Personal history of urinary calculi
CPT/HCPCS: 74176

== ENCOUNTER → 2025-01-27 | Outpatient (CLI) | payer MEDICARE ==
[2025-01-27 13:46] VITALS: BP 113/65; PULSE 61; RESP 16; TEMP 97.1
--- NOTE | 2025-01-27 16:03 | P.PAINPG ---
Objective - Vital Signs Vital signs: Vital Signs Temp 97.1 F L 01/27/25 13:31 Pulse 61 01/27/25 13:31 Resp 16 01/27/25 13:31 BP 113/65 01/27/25 13:31 Pulse Ox 97 01/27/25 13:31 FiO2 Intake & Output 01/26/25 01/27/25 01/27/25 18:59 06:59 18:59 Weight 46.72 kg PQRS Measure Charge Sheet Mode of Arrival: Ambulatory Comment: HISTORY OF PRESENT ILLNESS: A 74 yr old female as a referral from Dr De Souza presents today w severe and chronic LBP x 1 yr secondary to post laminectomy for evaluation. Pt states pain level is provoked at 8 /10 in intensity, constant, localized in the lumbar spine, predominantly axial, achy in character w occasional shooting pain towards the LEs. Pain is provoked by over activity. Pain is alleviated by physician guided home stretches 4-5 times weekly since Sep 2024, medications, topical, repositioning and rest . Oswestry axial pain score at 32. PMH: OA, Angina, COPD, DVT, Fibromyalgia, GERD, Hyperlipidemia, Hypertension, [place] (2005) PSH: Appendectomy, Lumbar Surgery w Hardware, Heart Catheterization With Stent (2005), Ventral Hernia Repair (2021), Hysterectomy, D&C, R Nephrolithiasis, Tonsillectomy/ Adenoidectomy, Appendectomy SH: Daily tobacco use, No ETOH use, Cannabis use FH: Mo- CAD, CHF. Fa- Lung CA All: See list Medications include Tyl, Robaxin, CBD Oil REVIEW OF ORGAN SYSTEMS: CONSTITUTIONAL: No fevers or chills. No recent weight loss . NEUROLOGICAL: + numbness and tingling along the distal extremities. No seizure disorders or headaches. MUSCULOSKELETAL: + pain PSYCHIATRIC: Denies current depression or suicidal thoughts. Physical Examinations : Constitutional : Cooperative , not in acute distress . Neurologic : Cranial nerve II to XII intact. No focal neurological deficits. Psychiatric : alert & oriented x 3. Matching mood & appropriate affect. Judgment & insight intact. Musculoskeletal : Cervical Spine Motor strength in the deltoid and biceps: Normal right side. Normal Left side Motor strength biceps and the wrist ext ensors: Normal right side . Normal left side Motor strength in the triceps muscle: Normal right side. Normal left side Deep tendon reflexes: Normal at the biceps. Normal at Brachioradialis. Normal at triceps Vertebral body tenderness to deep palpation over Cervical facet loading test: positive bilaterally Spurling test: positive bilaterally Neck distraction test: positive bilaterally Yimi sign: positive bilaterally Lumbar spine Motor strength lower extremities ,thigh and legs 5/5 Right side , 5/5 Left side Deep tendon reflexes : Normal Knee Jerk. Normal Ankle Jerk Vertebral body tenderness over Wheatley Test positive Lumbar facet Loading Test: positive Right / positive Left Range of motion of the lumbar spine Flexion 30 degrees, extension 10 degrees Straight Leg Raise test: Left/ Right positive at degrees Jude test: positive right / positive left. Severe tenderness over the Sacroiliac joint on the Right / Left sides Gaenslen test: positive bilaterally Seated flexion test: positive bilaterally. Sacral spine : Severe tenderness over the Sacroiliac joint: right side / left side Range of motion: Flexion of the lumbar spine <60 degrees Range of motion: Extension of the lumbar spine <20 degrees Gaenslen's Test positive Jude test: positive right side / left side Thigh Thrust Test Sacral Thrust Test Imaging: None on file Assessment/ Plan : Lumbar radiculopathy Recommendation of lumbar x ray/ PT x 6 wks M54.16. All questions answered. I have spent greater than 30 minutes on patient care today. Dr Restrepo was available by phone for the evaluation of this patient. The time was used to review the medical records including relevant urine studies and Prescription history (MAPs), review of the available imaging, evaluation and examination of the patient, coordination of care with the medical staff and if applicable referring physicians, as well as creation of the medical record - Pain Location Bilateral Lower Back Non-Pharmacological Interventions: Elevation, Exercise, Heat, Home Exercise, Ice, Inactivity, Physical Therapy, Position/Reposition, Sitting, Stretching Pharmacological Interventions: PRN Medication, Topical Medication PQRS Narrative: Smoking Status Current every day smoker Blood Pressure 113/65 Pain Intensity [Bilateral 8 Lower Back] Scale Used Numeric (1 - 10) Hx Alcohol Use (MH) No Home Medications: Ambulatory Orders Esomeprazole Magnesium [NexIUM] 40 mg PO QAM 05/06/14 Furosemide [Lasix] 40 mg PO QAM 05/06/14 Potassium Chloride [Klor-Con 10] 10 meq PO BID 05/06/14 Simvastatin [Zocor] 40 mg PO HS 05/06/14 Acyclovir 5% Oint [Zovirax Oint] 1 applic TOPICAL 5XD PRN 07/20/17 Nitroglycerin Sl Tabs [Nitrostat] 0.4 mg SUBLINGUAL Q5M PRN 07/20/17 lamoTRIgine [LaMICtal] 100 mg PO QAM 07/20/17 lisinopriL [Zestril] 20 mg PO QAM 07/20/17 traZODone HCL 75 mg PO HS 07/20/17 Albuterol Sulfate [Proair Hfa] 1 puff INHALATION QID PRN 09/13/21 Levothyroxine Sodium 25 mcg PO QAM 09/13/21 amLODIPine [Norvasc] 5 mg PO QAM 09/13/21 Aspirin EC [Ecotrin Low Dose] 81 mg PO DAILY 01/27/25 Ciprofloxacin 500 mg PO DAILY 01/27/25 DULoxetine HCL [Cymbalta] 60 mg PO BID 01/27/25 Dicyclomine [Bentyl] 20 mg PO TID 01/27/25 Famotidine [Pepcid] 40 mg PO HS 01/27/25 Multivitamin [Multivitamins Adult Gummies] 1 each PO 01/27/25 Naloxegol Oxalate [Movantik] 25 mg PO 01/27/25 Pentosan Polysulfate Sodium [Elmiron] 100 mg PO BID 01/27/25 Pentosan Polysulfate Sodium [Elmiron] 100 mg PO BID 01/27/25 methocarbamoL 750 mg PO TID 01/27/25 Controlled Substance Measures - Controlled Substance Measures Is patient prescribed a controlled substance at discharge?: No
== END ==
LOC: PNWHC3 13:21
PROVIDERS: ATTEND Specialist
DX: M54.16 Radiculopathy, lumbar region (principal); M96.1 Postlaminectomy syndrome, not elsewhere classified; F17.200 Nicotine dependence, unspecified, uncomplicated; Z88.0 Allergy status to penicillin; Z88.2 Allergy status to sulfonamides; Z88.1 Allergy status to other antibiotic agents; Z91.013 Allergy to seafood; Z88.6 Allergy status to analgesic agent; Z91.041 Radiographic dye allergy status; Z88.5 Allergy status to narcotic agent; Z88.8 Allergy status to other drugs, medicaments and biological substances
CPT/HCPCS: 99211

== ENCOUNTER → 2025-03-09 | Outpatient (CLI) | payer MEDICARE ==
[2025-03-09 09:13] VITALS: BP 130/64; PULSE 68; RESP 16; TEMP 97.7
--- NOTE | 2025-03-09 09:40 | P.PAINPG ---
PQRS Measure Charge Sheet Comment: HISTORY OF PRESENT ILLNESS: A 74 yr old female as a referral from Dr De Souza presents today w severe and chronic LBP x 1 yr secondary to post laminectomy for evaluation. Pt states pain level is provoked at 8 /10 in intensity, constant, localized in the lumbar spine, predominantly axial, achy in character w occasional shooting pain towards the LEs. Pain is provoked by over activity. Pain is alleviated by PT x 6 wks which she is currently in, physician guided home stretches 4-5 times weekly since Sep 2024, medications, topical, repositioning and rest . Oswestry axial pain score at 32. Interventional procedures include Lumbar Surgery w Hardware, Heart Catheterization With Stent (2005) Medications include Tyl, Robaxin, CBD Oil, Cannabis REVIEW OF ORGAN SYSTEMS: CONSTITUTIONAL: No fevers or chills. No recent weight loss. NEUROLOGICAL: + numbness and tingling along the distal extremities. No seizure disorders or headaches. MUSCULOSKELETAL: + pain PSYCHIATRIC: Denies current depression or suicidal thoughts. Physical Examinations : Constitutional : Cooperative , not in acute distress . Neurologic : Cranial nerve II to XII intact. No focal neurological deficits. Psychiatric : alert & oriented x 3. Matching mood & appropriate affect. Judgment & insight intact. Musculoskeletal : Cervical Spine Motor strength in the deltoid and biceps: Normal right side. Normal Left side Motor strength biceps and the wrist extensors: Normal right side . Normal left side Motor strength in the triceps muscle: Normal right side. Normal left side Deep tendon reflexes: Normal at the biceps. Normal at Brachioradialis. Normal at triceps Vertebral body tenderness to deep palpation over Cervical facet loading test: positive bilaterally Spurling test: positive bilaterally Neck distraction test: positive bilaterally Yimi sign: positive bilaterally Lumbar spine Motor strength lower extremities ,thigh and legs 5/5 Right side , 5/5 Left side Deep tendon reflexes : Normal Knee Jerk. Normal Ankle Jerk Vertebral body tenderness over L5 Wheatley Test positive BL L5-S1 Lumbar facet Loading Test: positive Right / positive Left Range of motion of the lumbar spine Flexion 30 degrees, extension 10 degrees Straight Leg Raise test: Left/ Right positive at degrees Jude test: positive right / positive left. Severe tenderness over the Sacroiliac joint on the Right / Left sides Gaenslen test: positive bilaterally Seated flexion test: positive bilaterally. Sacral spine : Severe tenderness over the Sacroiliac joint: right side / left side Range of motion: Flexion of the lumbar spine <60 degrees Range of motion: Extension of the lumbar spine <20 degrees Gaenslen's Test positive Jude test: positive right side / left side Thigh Thrust Test Sacral Thrust Test Imaging: CT non contrast lumbar spine from 02/15/25 reviewed Assessment/ Plan : failed L3-S1 laminectomy w fixation Recommendation of BL TFESI L5-S1 #1. Risks, benefits of procedure discussed and patient verbalized understanding. Protocol for discontinuation/continuation of medications surrounding procedure discussed. Script for TENS unit, LSO provided per pt request M54.16, G89.4. UDS 03/09/25. All questions answered. I have spent greater than 30 minutes on patient care today. Dr Restrepo was available by phone for the evaluation of this patient. The time was used to review the medical records including relevant urine studies and Prescription history (MAPs), review of the available imaging, evaluation and examination of the patient, coordination of care with the medical staff and if applicable referring physicians, as well as creation of the medical record - Pain Location Bilateral Lower Back Non-Pharmacological Interventions: Elevation, Heat, Ice, Inactivity, Physical Therapy, Position/Reposition, Sitting, Stretching Pharmacological Interventions: PRN Medication, Topical Medication PQRS Narrative: Smoking Status Current every day smoker Hx Alcohol Use (MH) No Home Medications: Ambulatory Orders Esomeprazole Magnesium [NexIUM] 40 mg PO QAM 05/06/14 Furosemide [Lasix] 40 mg PO QAM 05/06/14 Potassium Chloride [Klor-Con 10] 10 meq PO BID 05/06/14 Simvastatin [Zocor] 40 mg PO HS 05/06/14 Acyclovir 5% Oint [Zovirax Oint] 1 applic TOPICAL 5XD PRN 07/20/17 Nitroglycerin Sl Tabs [Nitrostat] 0.4 mg SUBLINGUAL Q5M PRN 07/20/17 lamoTRIgine [LaMICtal] 100 mg PO QAM 07/20/17 lisinopriL [Zestril] 20 mg PO QAM 07/20/17 traZODone HCL 75 mg PO HS 07/20/17 Albuterol Sulfate [Proair Hfa] 1 puff INHALATION QID PRN 09/13/21 Levothyroxine Sodium 25 mcg PO QAM 09/13/21 amLODIPine [Norvasc] 5 mg PO QAM 09/13/21 Aspirin EC [Ecotrin Low Dose] 81 mg PO DAILY 01/27/25 Ciprofloxacin 500 mg PO DAILY 01/27/25 DULoxetine HCL [Cymbalta] 60 mg PO BID 01/27/25 Dicyclomine [Bentyl] 20 mg PO TID 01/27/25 Famotidine [Pepcid] 40 mg PO HS 01/27/25 Multivitamin [Multivitamins Adult Gummies] 1 each PO 01/27/25 Naloxegol Oxalate [Movantik] 25 mg PO 01/27/25 Pentosan Polysulfate Sodium [Elmiron] 100 mg PO BID 01/27/25 Pentosan Polysulfate Sodium [Elmiron] 100 mg PO BID 01/27/25 methocarbamoL 750 mg PO TID 01/27/25 HYDROcodone/APAP 7.5-325MG [[place] 7.5-325] 1 tab PO Q4H PRN 3 Days #18 tab 03/09/25 Controlled Substance Measures - Controlled Substance Measures Is patient prescribed a controlled substance at discharge?: Yes When asked, does pt state using other controlled substances?: No If prescribed controlled substance>3 days was MAPS reviewed?: Prescribed <3 Days
== END ==
LOC: PNWHC3 08:37
PROVIDERS: ATTEND Specialist
DX: M96.1 Postlaminectomy syndrome, not elsewhere classified (principal); F17.200 Nicotine dependence, unspecified, uncomplicated; Z91.041 Radiographic dye allergy status; Z91.013 Allergy to seafood; Z88.0 Allergy status to penicillin; Z88.1 Allergy status to other antibiotic agents; Z88.2 Allergy status to sulfonamides; Z88.8 Allergy status to other drugs, medicaments and biological substances
CPT/HCPCS: 80307